=== PATIENT | female | born 1935 | race Caucasian/White ===

== ENCOUNTER → 2018-08-21 | Outpatient (CLI) | payer MEDICARE, OTHER ==
[2018-08-21 11:54] LABS: ABSOLUTE BASOPHILS # (AUTO) 0.1 10^3/uL (0.0-0.2); ABSOLUTE EOSINOPHILS # (AUTO) 0.2 10^3/uL (0.0-0.6); ABSOLUTE LYMPHOCYTES (AUTO) 3.3 10^3/uL (0.5-4.7); ABSOLUTE MONOCYTES (AUTO) 0.6 10^3/uL (0.1-1.4); ABSOLUTE NEUT (AUTO) 3.6 10^3/uL (1.7-8.2); BASOPHILS % (AUTO) 0.8 % (0-2); EOSINOPHILS % (AUTO) 2.3 % (0-6); HEMATOCRIT 35.8 % (36.0-47.0); HEMOGLOBIN 11.2 g/dL (12.0-15.5); LYMPHOCYTES % (AUTO) 42.5 % (13-45); MEAN CORPUSCULAR HEMOGLOBIN 22.7 pg (27.0-33.4); MEAN CORPUSCULAR HGB CONC 31.3 g/dL (32.0-36.0); MEAN CORPUSCULAR VOLUME 73 fl (80-97); MONOCYTES % (AUTO) 8.3 % (3-13); PLATELET COUNT 260 10^3/uL (150-450); PROTHROMBIN TIME 15.9 SEC (11.4-15.4); RED BLOOD COUNT 4.93 10^6/uL (3.72-5.28); RED CELL DISTRIBUTION WIDTH 28.2 % (11.5-14.0); SEGMENTED NEUTROPHILS % (AUTO) 46.1 % (42-78); TOTAL CELLS COUNTED % (AUTO) 100 %; WHITE BLOOD COUNT 7.8 10^3/uL (4.0-10.5)
[2018-08-21 12:05] LABS: ANION GAP 10 (5-19); BLOOD UREA NITROGEN 14 mg/dL (7-20); CALCIUM 9.5 mg/dL (8.4-10.2); CARBON DIOXIDE 30 mmol/L (22-30); CHLORIDE 102 mmol/L (98-107); GLUCOSE 164 mg/dL (75-110); POTASSIUM 4.6 mmol/L (3.6-5.0); SODIUM 142.3 mmol/L (137-145)
[2018-08-21 12:21] LABS: HYPOCHROMASIA 1+
--- NOTE | 2018-08-21 12:21 | RADIOLOGY REPORT (SQ) ---
EXAM DESCRIPTION: CHEST 2 VIEWS COMPLETED DATE/TIME: 08/21/2018 11:57 am REASON FOR STUDY: CHF AND AFIB COMPARISON: None. NUMBER OF VIEWS: Two view. TECHNIQUE: Frontal and lateral radiographic views of the chest acquired. LIMITATIONS: None. FINDINGS: LUNGS AND PLEURA: Hyperinflation No opacities, masses or pneumothorax. No pleural effusion . MEDIASTINUM AND HILAR STRUCTURES: No masses. No contour abnormalities. HEART AND VASCULAR STRUCTURES: Cardiomegaly with borderline vascular prominence. BONES: No acute findings. HARDWARE: Sternotomy wires and prosthetic valve. OTHER: No other significant finding. IMPRESSION: COPD. CARDIOMEGALY WITH BORDERLINE VASCULAR PROMINENCE. TECHNICAL DOCUMENTATION: JOB ID: [id number] [email or web address]- All Rights Reserved Reading location - IP/workstation name: [email or web address]
[2018-08-21 12:22] LABS: ANISOCYTOSIS 4+; OVALOCYTES 1+; PLATELET COMMENT ADEQUATE; POIKILOCYTOSIS 2+; TARGET CELLS 1+; TEAR DROP CELLS SLIGHT
== END ==
LOC: LAB 11:24
PROVIDERS: ATTEND Nurse Practitioner Family
DX: I50.9 Heart failure, unspecified (principal); I48.91 Unspecified atrial fibrillation; J44.9 Chronic obstructive pulmonary disease, unspecified
CPT/HCPCS: 36415; 71046; 80048; 85025; 85610

== ENCOUNTER 2019-03-19 01:25 | Emergency (ER) | payer OTHER ==
[2019-03-19] MEDS ORDERED: DIGOXIN 0.125 MG TABLET PO ONE (02:19)
--- NOTE | 2019-03-19 02:33 | ER Document Report ---
ED General - General Chief Complaint: General Weakness Stated Complaint: WEAKNESS Time Seen by Provider: 03/19/19 02:16 Notes: Patient is an 83-year-old female with a past medical history of atrial fibrillation, hypertension, hyperlipidemia, presents with palpitations and an episode of lightheadedness earlier today. The patient herself at the time of my evaluation his main complaint is that she was having palpitations that was making it difficult for her to sleep. States that she could feel her heart "beating all over the place" and that this made her extremely anxious prompting her to contact 911. Nothing seemed to improve or worsen her symptoms. Did regard them as being severe and constant when present. Somewhat improved since arrival in the emergency department. Apparently earlier today at least 8 hours prior to arrival the patient was seen in the kitchen and said that she had an episode in which her vision became somewhat dark and she felt lightheaded but this episode did resolve spontaneously and she did not pass out. She adamantly denies having any chest pain, shortness of breath, focal weakness or numbness. At baseline she is somewhat unsteady on her feet and uses a walker at all times. She is here with her daughter who corroborates history. Long-standing history of the same, states when she lived in [place] she was hospitalized frequently for irregular A. fib but eventually was told "you have to get used to this". She has follow-up with Dr. Hewitt for management of her A. fib. TRAVEL OUTSIDE OF THE [place] IN LAST 30 DAYS: No - Related Data Allergies/Adverse Reactions: No Known Allergies Allergy (Verified 03/19/19 01:27) Past Medical History - General Information source: Patient - Social History Smoking Status: Never Smoker Chew tobacco use (# tins/day): No Frequency of alcohol use: None Drug Abuse: None Lives with: Family Family History: Reviewed & Not Pertinent Patient has suicidal ideation: No Patient has homicidal ideation: No - Past Medical History Cardiac Medical History: Reports: Hx Congestive Heart Failure, Hx Hypertension Renal/ Medical History: Denies: Hx Peritoneal Dialysis Past Surgical History: Reports: Hx Cardiac Surgery Review of Systems - Review of Systems Notes: Constitutional: Negative for fever. HENT: Negative for sore throat. Eyes: Negative for visual changes. Cardiovascular: Positive palpitations Respiratory: Negative for shortness of breath. Gastrointestinal: Negative for abdominal pain, vomiting or diarrhea. Genitourinary: Negative for dysuria. Musculoskeletal: Negative for back pain. Skin: Negative for rash. Neurological: Negative for headaches, weakness or numbness. 10 point ROS negative except as marked above and in HPI. Physical Exam - Vital signs Vitals: Temp Pulse Resp BP Pulse Ox 97.7 F 62 20 156/105 H 97 03/19/19 01:37 03/19/19 01:37 03/19/19 01:37 03/19/19 01:37 03/19/19 01:37 Interpretation: Hypertensive Notes: PHYSICAL EXAMINATION: GENERAL: Well-appearing, well-nourished and in no acute distress. HEAD: Atraumatic, normocephalic. EYES: Pupils equal round and reactive to light, extraocular movements intact, sclera anicteric, conjunctiva are normal. ENT: nares patent, oropharynx clear without exudates. Moist mucous membranes. NECK: Normal range of motion, supple without lymphadenopathy LUNGS: Breath sounds clear to auscultation bilaterally and equal. No wheezes rales or rhonchi. HEART: Irregular regular rate and rhythm without murmurs ABDOMEN: Soft, nontender, normoactive bowel sounds. No guarding, no rebound. No masses appreciated. EXTREMITIES: Normal range of motion, no pitting or edema. No cyanosis. NEUROLOGICAL: No focal neurological deficits. Moves all extremities spontaneously and on command. PSYCH: Normal mood, normal affect. SKIN: Warm, Dry, normal turgor, no rashes or lesions noted. Course - Re-evaluation Re-evalutation: 03/19/19 02:31 Patient presents with complaints of general weakness, lightheadedness, but her main concern is palpitations that are making it difficult for her to sleep. Patient and daughter at the bedside do report that this is a very long-standing history and that nothing is necessarily new or different today other than the patient was having significant difficulty sleeping. Her heart rate is noted to be highly irregular, ranging anywhere from the 70s all the way up to the 140s although overall is staying within acceptable ranges below 100. Patient is noted to be markedly hypertensive although admits to not taking all of her blood pressure medications today. She does follow with Dr. Hewitt. Adamantly denies chest pain or shortness of breath. Denies any additional complaint at the time of my evaluation. No focal neurologic deficit on exam. EKG without ischemic changes. Labs are pending. 03/19/19 03:33 Patient's heart rate has remained within acceptable ranges. Labs unremarkable. Case has been discussed with Dr. Cook who is advised adding metoprolol 25 mg twice daily patient has been given her first dose here. Patient otherwise asymptomatic, states she overall feels improved. Comfortable with plan. At this time will discharge with return precautions and follow-up recommendations. Verbal discharge instructions given a the bedside and opportunity for questions given. Medication warnings reviewed. Patient is in agreement with this plan and has verbalized understanding of return precautions and the need for primary care follow-up in the next 24-72 hours. - Vital Signs Vital signs: Temp Pulse Resp BP Pulse Ox 97.7 F 62 20 172/90 H 95 03/19/19 01:37 03/19/19 01:37 03/19/19 03:01 03/19/19 03:01 03/19/19 03:01 - Laboratory Result Diagrams: 03/19/19 02:25 03/19/19 02:25 Laboratory results interpreted by me: 03/19/19 03/19/19 03/19/19 02:25 02:25 02:25 WBC 12.2 H MCHC 31.7 L Glucose 228 H Digoxin 0.79 L - EKG Interpretation by Me Additional EKG results interpreted by me: 03/19/19 02:32 Atrial fibrillation, widely varying rates. Average rate 121. Incomplete right bundle branch block. No ST elevations or depressions. Discharge - Discharge Clinical Impression: Palpitations, Lightheadedness Atrial fibrillation Qualifiers: Atrial fibrillation type: chronic Qualified Code(s): I48.2 - Chronic atrial fibrillation Condition: Good Disposition: HOME, SELF-CARE Additional Instructions: Your labs are reassuring today. I have discussed her case with Dr. Hewitt and he has asked that we add metoprolol 25 mg twice daily. Please do not stop any of your other medications. He has asked that you see him in the office Thursday. Please call his office first thing Thursday. Please return to the emergency department immediately if you pass out, develop chest pain, have ongoing palpitations, have persistent vomiting, develop focal weakness, numbness or confusion, or any other symptoms that are worrisome to you. Prescriptions: Metoprolol Tartrate [Lopressor 25 mg Tablet] 25 mg PO Q12 #60 tab
[2019-03-19 02:47] LABS: ABSOLUTE EOSINOPHILS # (AUTO) 0.1 10^3/uL (0.0-0.6); ABSOLUTE MONOCYTES (AUTO) 0.9 10^3/uL (0.1-1.4); ABSOLUTE NEUT (AUTO) 7.2 10^3/uL (1.7-8.2); BASOPHILS % (AUTO) 0.4 % (0-2); EOSINOPHILS % (AUTO) 0.7 % (0-6); HEMATOCRIT 40.8 % (36.0-47.0); HEMOGLOBIN 12.9 g/dL (12.0-15.5); LYMPHOCYTES % (AUTO) 32.8 % (13-45); MEAN CORPUSCULAR HGB CONC 31.7 g/dL (32.0-36.0); MEAN CORPUSCULAR VOLUME 85 fl (80-97); MONOCYTES % (AUTO) 7.2 % (3-13); PLATELET COUNT 287 10^3/uL (150-450); RED BLOOD COUNT 4.79 10^6/uL (3.72-5.28); RED CELL DISTRIBUTION WIDTH 13.4 % (11.5-14.0); SEGMENTED NEUTROPHILS % (AUTO) 58.9 % (42-78); TOTAL CELLS COUNTED % (AUTO) 100 %; WHITE BLOOD COUNT 12.2 10^3/uL (4.0-10.5)
[2019-03-19 03:03] LABS: ANION GAP 11 (5-19); BLOOD UREA NITROGEN 18 mg/dL (7-20); CALCIUM 9.5 mg/dL (8.4-10.2); CARBON DIOXIDE 30 mmol/L (22-30); CHLORIDE 103 mmol/L (98-107); GLUCOSE 228 mg/dL (75-110); POTASSIUM 4.2 mmol/L (3.6-5.0)
[2019-03-19] MEDS ORDERED: METOPROLOL TARTRATE 25 MG TABLET PO ONE (03:23)
[2019-03-19 03:52] LABS: DIGOXIN 0.79 ng/mL (0.8-2.0)
[2019-03-19 04:12] VITALS: BP 169/97
--- NOTE | 2019-03-19 23:43 | EKG REPORT ---
SEVERITY:- ABNORMAL ECG - ATRIAL FIBRILLATION INCOMPLETE RIGHT BUNDLE BRANCH BLOCK : Confirmed by: Valentina Hewitt MD 19-Mar-2019 23:42:57
== END 2019-03-19 04:01 | disposition home or self-care (01) ==
LOC: ER 01:25
DX: I48.2 Chronic atrial fibrillation (principal); R53.1 Weakness; R00.2 Palpitations; R42 Dizziness and giddiness; E78.5 Hyperlipidemia, unspecified; I50.9 Heart failure, unspecified; I11.0 Hypertensive heart disease with heart failure
CPT/HCPCS: 93005; 99285; 36415; 80162; 85025; 80048; 84484; 93010; A9270

== ENCOUNTER → 2019-06-14 | Outpatient (CLI) | payer OTHER ==
[2019-06-14 12:54] LABS: ABSOLUTE BASOPHILS # (AUTO) 0.1 10^3/uL (0.0-0.2); ABSOLUTE LYMPHOCYTES (AUTO) 5.5 10^3/uL (0.5-4.7); ABSOLUTE MONOCYTES (AUTO) 0.9 10^3/uL (0.1-1.4); ABSOLUTE NEUT (AUTO) 7.6 10^3/uL (1.7-8.2); BASOPHILS % (AUTO) 0.4 % (0-2); EOSINOPHILS % (AUTO) 0.3 % (0-6); HEMATOCRIT 42.6 % (36.0-47.0); HEMOGLOBIN 13.2 g/dL (12.0-15.5); LYMPHOCYTES % (AUTO) 38.9 % (13-45); MEAN CORPUSCULAR HEMOGLOBIN 23.5 pg (27.0-33.4); MEAN CORPUSCULAR HGB CONC 30.9 g/dL (32.0-36.0); MEAN CORPUSCULAR VOLUME 76 fl (80-97); MONOCYTES % (AUTO) 6.6 % (3-13); PLATELET COUNT 311 10^3/uL (150-450); SEGMENTED NEUTROPHILS % (AUTO) 53.8 % (42-78); TOTAL CELLS COUNTED % (AUTO) 100 %; WHITE BLOOD COUNT 14.1 10^3/uL (4.0-10.5)
[2019-06-14 13:22] LABS: ANION GAP 11 (5-19); BLOOD UREA NITROGEN 17 mg/dL (7-20); CALCIUM 9.8 mg/dL (8.4-10.2); CARBON DIOXIDE 30 mmol/L (22-30); CHLORIDE 99 mmol/L (98-107); DIGOXIN 0.89 ng/mL (0.8-2.0); GLUCOSE 206 mg/dL (75-110); POTASSIUM 4.3 mmol/L (3.6-5.0)
[2019-06-14 13:32] LABS: FREE T3 3.29 pg/mL (2.77-5.27); FREE T4 (FREE THYROXINE) 1.8 ng/dL (0.78-2.19)
[2019-06-14 13:46] LABS: THYROID STIMULATING HORMONE 1.69 uIU/mL (0.47-4.68)
== END ==
LOC: OD 12:03
PROVIDERS: ATTEND Specialist
DX: I11.0 Hypertensive heart disease with heart failure (principal); I50.22 Chronic systolic (congestive) heart failure; I25.10 Atherosclerotic heart disease of native coronary artery without angina pectoris; I42.0 Dilated cardiomyopathy; I48.2 Chronic atrial fibrillation; E78.5 Hyperlipidemia, unspecified; E03.9 Hypothyroidism, unspecified; Z95.2 Presence of prosthetic heart valve; Z79.899 Other long term (current) drug therapy
CPT/HCPCS: 36415; 80048; 80162; 83036; 84439; 84443; 84481; 85025

== ENCOUNTER 2019-06-15 20:11 | Inpatient (IN) | payer OTHER, MEDICARE ==
[2019-06-15 21:03] LABS: ABSOLUTE BASOPHILS # (AUTO) 0.1 10^3/uL (0.0-0.2); ABSOLUTE EOSINOPHILS # (AUTO) 0.1 10^3/uL (0.0-0.6); ABSOLUTE LYMPHOCYTES (AUTO) 5.8 10^3/uL (0.5-4.7); ABSOLUTE NEUT (AUTO) 10.6 10^3/uL (1.7-8.2); BASOPHILS % (AUTO) 0.6 % (0-2); EOSINOPHILS % (AUTO) 0.5 % (0-6); HEMATOCRIT 40.8 % (36.0-47.0); HEMOGLOBIN 12.5 g/dL (12.0-15.5); LYMPHOCYTES % (AUTO) 33.2 % (13-45); MEAN CORPUSCULAR HEMOGLOBIN 23.2 pg (27.0-33.4); MEAN CORPUSCULAR HGB CONC 30.7 g/dL (32.0-36.0); MEAN CORPUSCULAR VOLUME 76 fl (80-97); MONOCYTES % (AUTO) 5.5 % (3-13); PLATELET COUNT 314 10^3/uL (150-450); RED CELL DISTRIBUTION WIDTH 15.9 % (11.5-14.0); SEGMENTED NEUTROPHILS % (AUTO) 60.2 % (42-78); TOTAL CELLS COUNTED % (AUTO) 100 %; WHITE BLOOD COUNT 17.6 10^3/uL (4.0-10.5)
[2019-06-15 21:21] LABS: ALKALINE PHOSPHATASE 89 U/L (38-126); ANION GAP 7 (5-19); ASPARTATE AMINO TRANSFERASE 29 U/L (14-36); BILIRUBIN,DIRECT 0.6 mg/dL (0.0-0.4); BILIRUBIN,TOTAL 1.3 mg/dL (0.2-1.3); BLOOD UREA NITROGEN 20 mg/dL (7-20); CALCIUM 9.1 mg/dL (8.4-10.2); CARBON DIOXIDE 30 mmol/L (22-30); CHLORIDE 100 mmol/L (98-107); CREATINE KINASE 43 U/L (30-135); GLUCOSE 223 mg/dL (75-110); POTASSIUM 3.9 mmol/L (3.6-5.0); TOTAL PROTEIN 7.1 g/dL (6.3-8.2)
[2019-06-15 21:33] LABS: CREATINE KINASE MB 1.26 ng/mL (<4.55)
[2019-06-15 21:38] LABS: TROPONIN I < 0.012 ng/mL
[2019-06-15 22:08] LABS: INTERNATIONAL RATION (INR) 1.42; PROTHROMBIN TIME 17.5 SEC (11.4-15.4)
[2019-06-15 22:09] LABS: PARTIAL THROMBOPLASTIN TIME 30.2 SEC (23.5-35.8)
--- NOTE | 2019-06-15 22:17 | RADIOLOGY REPORT (SQ) ---
XR CHEST 2 VIEWS EXAM DATE: 06/15/2019 9:20 PM CDT HISTORY: SOB. COMPARISON: None. FINDINGS: Mild hepatomegaly with prior valve replacement. There are small bilateral pleural effusions with adjacent atelectasis. No pneumothorax. The bony thorax is intact. IMPRESSION: Small pleural effusions with adjacent atelectasis.
[2019-06-15 22:24] LABS: APPEARANCE,URINE SLIGHTLY-CLOUDY; BILIRUBIN,URINE NEGATIVE (NEGATIVE); COLOR,URINE AMBER; GLUCOSE, URINE >=500 mg/dL (NEGATIVE); KETONES,URINE TRACE mg/dL (NEGATIVE); LEUKOCYTE ESTERASE,URINE NEGATIVE (NEGATIVE); NITRITE,URINE NEGATIVE (NEGATIVE); PROTEIN,URINE 100 mg/dL (NEGATIVE); URINE SPECIFIC GRAVITY 1.023
[2019-06-15] MEDS ORDERED: FUROSEMIDE INJ/PF 40 MG/4 ML SDV IV ONE (23:33)
[2019-06-16] MEDS ORDERED: MAG HYDROX/AL HYDROX/SIMETH SUSP 30 ML UDCUP PO PRN (00:20)
[2019-06-16] MEDS ORDERED: ACETAMINOPHEN 325 MG TABLET PO PRN (00:20)
--- NOTE | 2019-06-16 00:21 | ER Document Report ---
ED Respiratory Problem - General Chief Complaint: Shortness Of Breath Stated Complaint: WEAKNESS Time Seen by Provider: 06/15/19 21:19 Notes: Patient is a 83-year-old female presents to the emergency department for generalized respiratory distress. Patient states this evening while sitting on the couch she felt as though she could not catch her breath. States her daughter was in the room. Daughter states patient's face turned red and it seems like patient was gasping for air. Daughter is denying any coughing or choking episodes. Patient also denying any loss of consciousness. States she was able to inevitably catch her breath then presents to the emergency department. Patient states she has generalized congestion but is denying any cough. Patient's denying any fevers. Patient states at this point time she feels as though it is hard to take a deep breath. Patient's denying any chest pain. Patient recently moved to the area approximately 5 months ago. Does not have a primary care provider but has seen Dr. Cook as her physical therapy nurse. States yesterday she saw Dr. Back and he started her on Lasix 20 mg daily. States this was due to swelling in bilateral lower extremities and the patient has recently noted. Patient does have a history of congestive heart failure, atrial fibrillation, hypertension Patient has a surgical history of aortic valve replacement. TRAVEL OUTSIDE OF THE [place] IN LAST 30 DAYS: No - Related Data Allergies/Adverse Reactions: No Known Allergies Allergy (Verified 03/19/19 01:27) Past Medical History - General Information source: Patient, Relative - Social History Smoking Status: Never Smoker Chew tobacco use (# tins/day): No Frequency of alcohol use: None Drug Abuse: None Family History: Reviewed & Not Pertinent Patient has suicidal ideation: No Patient has homicidal ideation: No - Past Medical History Cardiac Medical History: Reports: Hx Congestive Heart Failure, Hx Hypertension Renal/ Medical History: Denies: Hx Peritoneal Dialysis Past Surgical History: Reports: Hx Cardiac Surgery Review of Systems - Review of Systems Constitutional: denies: Fever EENT: See HPI Cardiovascular: See HPI Respiratory: See HPI Gastrointestinal: No symptoms reported Genitourinary: No symptoms reported Female Genitourinary: No symptoms reported Musculoskeletal: No symptoms reported Skin: No symptoms reported Hematologic/Lymphatic: No symptoms reported Neurological/Psychological: No symptoms reported Physical Exam - Vital signs Vitals: Resp 14 06/15/19 20:18 - Notes Notes: GENERAL: Alert, interacts well. No acute distress. HEAD: Normocephalic, atraumatic. EYES: Pupils equal, round, and reactive to light. Extraocular movements intact. ENT: Oral mucosa moist, tongue midline. NECK: Full range of motion. Supple. Trachea midline. LUNGS: Clear to auscultation bilateral apices, no discernible wheezes, rales, or rhonchi. Diminished bilateral bases although, no respiratory distress lungs sitting still in bed. HEART: Irregularly irregular rate and rhythm. No murmur ABDOMEN: Soft, non-tender. Non-distended. Bowel sounds present in all 4 quadrants. EXTREMITIES: Moves all 4 extremities spontaneously. normal radial and dorsalis pedis pulses bilaterally. No cyanosis. +1 pitting edema noted bilateral lower extremities. BACK: no cervical, thoracic, lumbar midline tenderness. No saddle anesthesia, normal distal neurovascular exam. NEUROLOGICAL: Alert and oriented x3. Normal speech. cranial nerves II through XII grossly intact PSYCH: Normal affect, normal mood. SKIN: Warm, dry, normal turgor. No rashes or lesions noted. Course - Re-evaluation Re-evalutation: Laboratory 06/15/19 06/15/19 06/15/19 20:49 20:49 20:49 WBC 17.6 H RBC 5.40 H Hgb 12.5 Hct 40.8 MCV 76 L MCH 23.2 L MCHC 30.7 L RDW 15.9 H Plt Count 314 Lymph % (Auto) 33.2 Wright % (Auto) 5.5 Eos % (Auto) 0.5 Baso % (Auto) 0.6 Absolute Neuts (auto) 10.6 H Absolute Lymphs (auto) 5.8 H Absolute Monos (auto) 1.0 Absolute Eos (auto) 0.1 Absolute Basos (auto) 0.1 Seg Neutrophils % 60.2 PT INR APTT Sodium 137.4 Potassium 3.9 Chloride 100 Carbon Dioxide 30 Anion Gap 7 BUN 20 Creatinine 0.48 L Est GFR ( Amer) > 60 Est GFR (MDRD) Non-Af > 60 Glucose 223 H Calcium 9.1 Magnesium Total Bilirubin 1.3 Direct Bilirubin 0.6 H Neonat Total Bilirubin Not Reportable Neonat Direct Bilirubin Not Reportable Neonat Indirect Bili Not Reportable AST 29 ALT 14 Alkaline Phosphatase 89 Creatine Kinase 43 CK-MB (CK-2) 1.26 Troponin I < 0.012 NT-Pro-B Natriuret Pep Total Protein 7.1 Albumin 4.0 TSH Urine Color Urine Appearance Urine pH Ur Specific [place] Urine Protein Urine Glucose (UA) Urine Ketones Urine Blood Urine Nitrite Urine Bilirubin Urine Urobilinogen Ur Leukocyte Esterase Urine WBC (Auto) Urine RBC (Auto) U Hyaline Cast (Auto) Squamous Epi Cells Auto Urine Mucus (Auto) Urine Ascorbic Acid Digoxin 06/15/19 06/15/19 06/15/19 20:49 20:49 20:49 WBC RBC Hgb Hct MCV MCH MCHC RDW Plt Count Lymph % (Auto) Wright % (Auto) Eos % (Auto) Baso % (Auto) Absolute Neuts (auto) Absolute Lymphs (auto) Absolute Monos (auto) Absolute Eos (auto) Absolute Basos (auto) Seg Neutrophils % PT 17.5 H INR 1.42 APTT 30.2 Sodium Potassium Chloride Carbon Dioxide Anion Gap BUN Creatinine Est GFR ( Amer) Est GFR (MDRD) Non-Af Glucose Calcium Magnesium Total Bilirubin Direct Bilirubin Neonat Total Bilirubin Neonat Direct Bilirubin Neonat Indirect Bili AST ALT Alkaline Phosphatase Creatine Kinase CK-MB (CK-2) Troponin I NT-Pro-B Natriuret Pep 70397 H Total Protein Albumin TSH Urine Color Urine Appearance Urine pH Ur Specific [place] Urine Protein Urine Glucose (UA) Urine Ketones Urine Blood Urine Nitrite Urine Bilirubin Urine Urobilinogen Ur Leukocyte Esterase Urine WBC (Auto) Urine RBC (Auto) U Hyaline Cast (Auto) Squamous Epi Cells Auto Urine Mucus (Auto) Urine Ascorbic Acid Digoxin 0.83 06/15/19 06/15/19 06/15/19 20:49 20:49 22:09 WBC RBC Hgb Hct MCV MCH MCHC RDW Plt Count Lymph % (Auto) Wright % (Auto) Eos % (Auto) Baso % (Auto) Absolute Neuts (auto) Absolute Lymphs (auto) Absolute Monos (auto) Absolute Eos (auto) Absolute Basos (auto) Seg Neutrophils % PT INR APTT Sodium Potassium Chloride Carbon Dioxide Anion Gap BUN Creatinine Est GFR ( Amer) Est GFR (MDRD) Non-Af Glucose Calcium Magnesium 1.8 Total Bilirubin Direct Bilirubin Neonat Total Bilirubin Neonat Direct Bilirubin Neonat Indirect Bili AST ALT Alkaline Phosphatase Creatine Kinase CK-MB (CK-2) Troponin I NT-Pro-B Natriuret Pep Total Protein Albumin TSH 2.10 Urine Color KING Urine Appearance SLIGHTLY-CLOUDY Urine pH 6.0 Ur Specific [place] 1.023 Urine Protein 100 H Urine Glucose (UA) >=500 H Urine Ketones TRACE H Urine Blood SMALL H Urine Nitrite NEGATIVE Urine Bilirubin NEGATIVE Urine Urobilinogen 4.0 H Ur Leukocyte Esterase NEGATIVE Urine WBC (Auto) 4 Urine RBC (Auto) 3 U Hyaline Cast (Auto) 4 Squamous Epi Cells Auto 7 Urine Mucus (Auto) OCC Urine Ascorbic Acid NEGATIVE Digoxin Chest X-Ray 06/15/19 21:20 IMPRESSION: Small pleural effusions with adjacent atelectasis. EKG shows A-fib RBBB QTC 448, ST depression III, V3, [place] [id number] with bilateral pleural effusions on x-ray, patie nt's oxygen saturation around 93% on room air and slight tachypnea noted when patient sits up in the room to evaluate lung sounds I have discussed this case with hospitalist Dr. Levine for admission. Patient was placed on oxygen 2 L/min. IV Lasix has been ordered and administered. Dr. Levine will accept this patient for continued management to [facility]. - Vital Signs Vital signs: Temp Pulse Resp BP Pulse Ox 97.2 F 90 20 134/95 H 100 06/16/19 02:17 06/16/19 02:17 06/16/19 02:17 06/16/19 02:17 06/16/19 02:17 - Laboratory Result Diagrams: 06/16/19 02:59 06/15/19 20:49 Laboratory results interpreted by me: 06/15/19 06/15/19 06/15/19 20:49 20:49 20:49 WBC 17.6 H RBC 5.40 H MCV 76 L MCH 23.2 L MCHC 30.7 L RDW 15.9 H Absolute Neuts (auto) 10.6 H Absolute Lymphs (auto) 5.8 H PT Creatinine 0.48 L Glucose 223 H Direct Bilirubin 0.6 H NT-Pro-B Natriuret Pep 14244 H Urine Protein Urine Glucose (UA) Urine Ketones Urine Blood Urine Urobilinogen 06/15/19 06/15/19 20:49 22:09 WBC RBC MCV MCH MCHC RDW Absolute Neuts (auto) Absolute Lymphs (auto) PT 17.5 H Creatinine Glucose Direct Bilirubin NT-Pro-B Natriuret Pep Urine Protein 100 H Urine Glucose (UA) >=500 H Urine Ketones TRACE H Urine Blood SMALL H Urine Urobilinogen 4.0 H Discharge - Discharge Clinical Impression: Pleural effusion due to CHF (congestive heart failure), Respiratory distress Condition: Stable Disposition: ADMITTED INPATIENT Admitting Provider: Abner (Hospitalist) Unit Admitted: [facility]
[2019-06-16] MEDS ORDERED: HYDRALAZINE HCL INJ/PF 20 MG/1 ML SDV IV PRN (00:46)
[2019-06-16] MEDS ORDERED: POTASSIUM CHLORIDE 10 MEQ CAPSULE.ER PO ONE (01:00)
[2019-06-16 03:10] LABS: ABSOLUTE BASOPHILS # (AUTO) 0.1 10^3/uL (0.0-0.2); ABSOLUTE LYMPHOCYTES (AUTO) 6.4 10^3/uL (0.5-4.7); ABSOLUTE MONOCYTES (AUTO) 1.1 10^3/uL (0.1-1.4); ABSOLUTE NEUT (AUTO) 9.1 10^3/uL (1.7-8.2); BASOPHILS % (AUTO) 0.4 % (0-2); EOSINOPHILS % (AUTO) 0.3 % (0-6); HEMATOCRIT 40.5 % (36.0-47.0); HEMOGLOBIN 12.5 g/dL (12.0-15.5); LYMPHOCYTES % (AUTO) 38.3 % (13-45); MEAN CORPUSCULAR HEMOGLOBIN 23.2 pg (27.0-33.4); MEAN CORPUSCULAR HGB CONC 30.9 g/dL (32.0-36.0); MEAN CORPUSCULAR VOLUME 75 fl (80-97); MONOCYTES % (AUTO) 6.5 % (3-13); PLATELET COUNT 306 10^3/uL (150-450); RED CELL DISTRIBUTION WIDTH 15.7 % (11.5-14.0); SEGMENTED NEUTROPHILS % (AUTO) 54.5 % (42-78); TOTAL CELLS COUNTED % (AUTO) 100 %; WHITE BLOOD COUNT 16.7 10^3/uL (4.0-10.5)
[2019-06-16 03:30] LABS: ANION GAP 11 (5-19); BLOOD UREA NITROGEN 18 mg/dL (7-20); CALCIUM 9.5 mg/dL (8.4-10.2); CARBON DIOXIDE 31 mmol/L (22-30); CHLORIDE 98 mmol/L (98-107); CHOLESTEROL 156.06 mg/dL (0-200); CREATINE KINASE 40 U/L (30-135); GLUCOSE 206 mg/dL (75-110); POTASSIUM 3.9 mmol/L (3.6-5.0); TRIGLYCERIDES 78 mg/dL (<150)
[2019-06-16 03:39] LABS: CREATINE KINASE MB 0.91 ng/mL (<4.55); TROPONIN I 0.015 ng/mL
[2019-06-16 03:41] LABS: DIRECT LDL 136 mg/dL (<100)
--- NOTE | 2019-06-16 04:51 | PDOC H&P ---
History of Present Illness Admission Date/PCP: 06/16/19 00:26 EDI BECKWITH MD Patient complains of: Shortness of breath History of Present Illness: RUBEN MORRIS is a 83 year old female with a past medical history of atrial fibrillation, mechanical aortic valve replacement and congestive heart failure. Patient presents with 3 days of increasing shortness of breath developing wheeze prompting evaluation by primary vendor management specialist Dr. Beckwith. She was started Lasix but admitted intolerable thirst prompting her to drink more. She developed lower extremity edema, orthopnea, palpitations and tachycardia prompting emergency department evaluation. In the emergency room she is found to have acute exacerbation of congestive heart failure, A. fib with controlled rate, BNP of greater than 100,000 and small bilateral pleural effusions with pulmonary vascular congestion. She denies chest pain, nausea or vomiting. She is started on IV Lasix and referred to the hospitalist for admission. She is unaware of dietary restrictions but is otherwise compliant with medications. Past Medical History Cardiac Medical History: Reports: Congestive Heart Failure, Hypertension Psychiatric Medical History: Denies: Depression, Tobacco Dependency Social History Smoking Status: Never Smoker - Advance Directive Resuscitation Status: Full Code Family History Family History: Hypertension Parental Family History Reviewed: Yes Children Family History Reviewed: Yes Sibling(s) Family History Reviewed.: Yes Medication/Allergy Home Medications: Metoprolol Tartrate [Lopressor 25 mg Tablet] 25 mg PO Q12 #60 tab 03/19/19 Allergies/Adverse Reactions: No Known Allergies Allergy (Verified 03/19/19 01:27) Review of Systems Constitutional: PRESENT: as per HPI, weight gain Eyes: ABSENT: visual disturbances Ears: ABSENT: hearing changes Cardiovascular: PRESENT: as per HPI, dyspnea on exertion, edema, orthropnea, palpitations. ABSENT: chest pain Respiratory: ABSENT: cough, hemoptysis Gastrointestinal: ABSENT: abdominal pain, constipation, diarrhea, hematemesis, hematochezia, nausea, vomiting Genitourinary: ABSENT: dysuria, hematuria Musculoskeletal: ABSENT: joint swelling Integumentary: ABSENT: rash, wounds Neurological: ABSENT: abnormal gait, abnormal speech, confusion, dizziness, focal weakness, syncope Psychiatric: ABSENT: anxiety, depression, homidical ideation, suicidal ideation Endocrine: ABSENT: cold intolerance, heat intolerance, polydipsia, polyuria Hematologic/Lymphatic: ABSENT: easy bleeding, easy bruising Physical Exam Vital Signs: Temp Pulse Resp BP Pulse Ox 97.2 F 90 20 134/95 H 100 06/16/19 02:17 06/16/19 02:17 06/16/19 02:17 06/16/19 02:17 06/16/19 02:17 Intake & Output 06/14/19 06/15/19 06/16/19 11:59 11:59 11:59 Weight 73.64 kg General appearance: PRESENT: cooperative, mild distress, well-developed, well- nourished Head exam: PRESENT: atraumatic, normocephalic Eye exam: PRESENT: conjunctiva pink, EOMI, PERRLA. ABSENT: scleral icterus Ear exam: PRESENT: normal external ear exam Mouth exam: PRESENT: moist, tongue midline Neck exam: ABSENT: carotid bruit, JVD, lymphadenopathy, thyromegaly Respiratory exam: PRESENT: crackles, tachypnea. ABSENT: rales, retraction, rhon chi, wheezes Cardiovascular exam: PRESENT: gallop, irregular rhythm, systolic murmur, tachycardia. ABSENT: diastolic murmur, rubs Pulses: PRESENT: normal dorsalis pedis pul Vascular exam: PRESENT: normal capillary refill GI/Abdominal exam: PRESENT: normal bowel sounds, soft. ABSENT: distended, gua rding, mass, organolmegaly, rebound, tenderness Rectal exam: PRESENT: deferred Extremities exam: PRESENT: full ROM, +2 edema. ABSENT: calf tenderness, clubbing, pedal edema Neurological exam: PRESENT: alert, awake, oriented to person, oriented to place, oriented to time, oriented to situation, CN II-XII grossly intact. ABSENT: motor sensory deficit Psychiatric exam: PRESENT: appropriate affect, normal mood. ABSENT: homicidal ideation, suicidal ideation Skin exam: PRESENT: dry, intact, warm. ABSENT: cyanosis, rash Results Laboratory Results: 06/16/19 02:59 06/16/19 02:59 06/15/19 06/15/19 06/15/19 20:49 20:49 20:49 WBC 17.6 H RBC 5.40 H Hgb 12.5 Hct 40.8 MCV 76 L MCH 23.2 L MCHC 30.7 L RDW 15.9 H Plt Count 314 Seg Neutrophils % 60.2 Sodium 137.4 Potassium 3.9 Chloride 100 Carbon Dioxide 30 Anion Gap 7 BUN 20 Creatinine 0.48 L Est GFR ( Amer) > 60 Glucose 223 H Calcium 9.1 Magnesium 1.8 Total Bilirubin 1.3 AST 29 Alkaline Phosphatase 89 Total Protein 7.1 Albumin 4.0 Triglycerides Cholesterol LDL Cholesterol Direct VLDL Cholesterol HDL Cholesterol TSH Urine Color Urine Appearance Urine pH Ur Specific [place] Urine Protein Urine Glucose (UA) Urine Ketones Urine Blood Urine Nitrite Ur Leukocyte Esterase Urine WBC (Auto) Urine RBC (Auto) 06/15/19 06/15/19 06/16/19 20:49 22:09 02:59 WBC 16.7 H RBC 5.40 H Hgb 12.5 Hct 40.5 MCV 75 L MCH 23.2 L MCHC 30.9 L RDW 15.7 H Plt Count 306 Seg Neutrophils % 54.5 Sodium Potassium Chloride Carbon Dioxide Anion Gap BUN Creatinine Est GFR ( Amer) Glucose Calcium Magnesium Total Bilirubin AST Alkaline Phosphatase Total Protein Albumin Triglycerides Cholesterol LDL Cholesterol Direct VLDL Cholesterol HDL Cholesterol TSH 2.10 Urine Color KING Urine Appearance SLIGHTLY-CLOUDY Urine pH 6.0 Ur Specific [place] 1.023 Urine Protein 100 H Urine Glucose (UA) >=500 H Urine Ketones TRACE H Urine Blood SMALL H Urine Nitrite NEGATIVE Ur Leukocyte Esterase NEGATIVE Urine WBC (Auto) 4 Urine RBC (Auto) 3 06/16/19 02:59 WBC RBC Hgb Hct MCV MCH MCHC RDW Plt Count Seg Neutrophils % Sodium 140.2 Potassium 3.9 Chloride 98 Carbon Dioxide 31 H Anion Gap 11 BUN 18 Creatinine 0.50 L Est GFR ( Amer) > 60 Glucose 206 H Calcium 9.5 Magnesium Total Bilirubin AST Alkaline Phosphatase Total Protein Albumin Triglycerides 78 Cholesterol 156.06 LDL Cholesterol Direct 136 H VLDL Cholesterol 16.0 HDL Cholesterol 36 L TSH Urine Color Urine Appearance Urine pH Ur Specific [place] Urine Protein Urine Glucose (UA) Urine Ketones Urine Blood Urine Nitrite Ur Leukocyte Esterase Urine WBC (Auto) Urine RBC (Auto) 06/15/19 06/15/19 06/15/19 20:49 20:49 20:49 Creatine Kinase 43 CK-MB (CK-2) 1.26 Troponin I < 0.012 NT-Pro-B Natriuret Pep [id number] H 06/16/19 06/16/19 02:59 02:59 Creatine Kinase 40 CK-MB (CK-2) 0.91 Troponin I 0.015 NT-Pro-B Natriuret Pep Impressions: Chest X-Ray 06/15/19 21:20 IMPRESSION: Small pleural effusions with adjacent atelectasis. Assessment and Plan - Diagnosis (1) CHF exacerbation Is this a current diagnosis for this admission?: Yes Plan: CHF care set deployed, diuresis, education, follow-up 2D echo, troponin, TSH and chemistry. (2) Pleural effusion due to CHF (congestive heart failure) Is this a current diagnosis for this admission?: Yes Plan: Secondary to #1, dietary discretion. Diuresis and education (3) Respiratory distress Is this a current diagnosis for this admission?: Yes Plan: Secondary to #1, supplemental oxygen, BiPAP as needed and diuresis - Time Time Spent with patient: 25-34 minutes - Inpatient Certification Medical Necessity: Need Close Monitoring Due to Risk of Patient Decompensation
--- NOTE | 2019-06-16 07:31 | EKG REPORT ---
SEVERITY:- ABNORMAL ECG - ATRIAL FIBRILLATION VENTRICULAR TRIGEMINY RIGHT BUNDLE BRANCH BLOCK LATERAL INFARCT, OLD PROBABLE ANTEROSEPTAL INFARCT, AGE INDETERM ST DEPRESSION, CONSIDER ISCHEMIA, INF LEADS : Confirmed by: Gabriel Jacobo MD 16-Jun-2019 07:30:24
[2019-06-16] MEDS ORDERED: (PENDING PHARMACY ID) (Bisoprolol Fumarate [Zebeta 5 Mg Tablet] 5 MG) PO SCH (10:00)
[2019-06-16] MEDS ORDERED: (PENDING PHARMACY ID) (Esomeprazole Magnesium [Nexium 24hr] 20 MG) PO SCH (10:00)
[2019-06-16] MEDS ORDERED: ASPIRIN 81 MG TABLET, ENT COATED PO SCH (10:00)
[2019-06-16] MEDS ORDERED: LOSARTAN POTASSIUM 25 MG TABLET PO SCH (10:00)
[2019-06-16] MEDS ORDERED: FUROSEMIDE 20 MG TABLET PO SCH (10:00)
[2019-06-16] MEDS ORDERED: METOPROLOL TARTRATE 25 MG TABLET PO SCH (10:00)
[2019-06-16] MEDS ORDERED: ATENOLOL 50 MG TABLET PO SCH (10:00)
[2019-06-16] MEDS ORDERED: SACUBITRIL/VALSARTAN 49 MG/51 MG TABLET PO SCH (10:00)
[2019-06-16] MEDS: NITROGLYCERIN 5 MG (0.2 MG/HR) PATCH.TD24 TD SCH (10:09)
[2019-06-16] MEDS: FUROSEMIDE INJ/PF 40 MG/4 ML SDV IV SCH (10:09)
[2019-06-16] MEDS: DOCUSATE SODIUM 100 MG CAPSULE PO SCH (10:13)
[2019-06-16] MEDS: FERROUS SULFATE 325 MG TABLET PO SCH (10:13)
[2019-06-16] MEDS: POTASSIUM CHLORIDE 10 MEQ CAPSULE.ER PO SCH ×2 (10:14→21:06)
[2019-06-16] MEDS: ASPIRIN 81 MG TABLET, ENT COATED PO SCH (10:15)
[2019-06-16] MEDS: SPIRONOLACTONE 25 MG TABLET PO SCH (10:16)
[2019-06-16] MEDS: APIXABAN 5 MG TABLET PO SCH ×2 (10:16→17:13)
[2019-06-16] MEDS: DIGOXIN 0.125 MG TABLET PO SCH (10:16)
[2019-06-16] MEDS: PANTOPRAZOLE SODIUM 20 MG TABLET.DR PO SCH (10:16)
[2019-06-16 11:34] LABS: CREATINE KINASE MB 1.2 ng/mL (<4.55); TROPONIN I 0.014 ng/mL
--- NOTE | 2019-06-16 13:48 | PDOC PROGRESS REPORT ---
Subjective Progress Note for:: 06/16/19 Subjective:: This is 83 years old female patient with past medical history of mechanical aortic valve replacement, hypothyroidism, systolic congestive heart failure, hypertension, hypothyroidism and type 2 diabetes mellitus not on any medication presented with chief complaint of shortness of breath. Patient reports that her current situation is precipitated by excess water drinking due to intense thirst. Her BNP is 11,700. I seen patient propped up in bed. She is awake alert oriented. Reports this her shortness of breath is relatively improved. Her medication reviewed and reconciled. Reason For Visit: AFIB, HEART FAILURE Physical Exam Vital Signs: Temp Pulse Resp BP Pulse Ox 97.8 F 84 20 154/96 H 96 06/16/19 08:01 06/16/19 08:01 06/16/19 08:01 06/16/19 08:01 06/16/19 09:41 Intake & Output 06/15/19 06/16/19 06/17/19 06:59 06:59 06:59 Intake Total 0 Balance 0 Weight 75 kg General appearance: PRESENT: mild distress Head exam: PRESENT: atraumatic Eye exam: PRESENT: conjunctiva pink Neck exam: PRESENT: JVD Respiratory exam: PRESENT: decreased breath sounds Cardiovascular exam: PRESENT: irregular rhythm GI/Abdominal exam: PRESENT: normal bowel sounds, soft. ABSENT: distended, guarding, mass, organolmegaly, rebound, tenderness Neurological exam: PRESENT: alert, oriented to person, oriented to place, oriented to time, oriented to situation Results Laboratory Results: 06/16/19 02:59 06/16/19 02:59 06/15/19 06/15/19 06/15/19 20:49 20:49 20:49 WBC 17.6 H RBC 5.40 H Hgb 12.5 Hct 40.8 MCV 76 L MCH 23.2 L MCHC 30.7 L RDW 15.9 H Plt Count 314 Seg Neutrophils % 60.2 Sodium 137.4 Potassium 3.9 Chloride 100 Carbon Dioxide 30 Anion Gap 7 BUN 20 Creatinine 0.48 L Est GFR ( Amer) > 60 Glucose 223 H Calcium 9.1 Magnesium 1.8 Total Bilirubin 1.3 AST 29 Alkaline Phosphatase 89 Total Protein 7.1 Albumin 4.0 Triglycerides Cholesterol LDL Cholesterol Direct VLDL Cholesterol HDL Cholesterol TSH Urine Color Urine Appearance Urine pH Ur Specific [place] Urine Protein Urine Glucose (UA) Urine Ketones Urine Blood Urine Nitrite Ur Leukocyte Esterase Urine WBC (Auto) Urine RBC (Auto) 06/15/19 06/15/19 06/16/19 20:49 22:09 02:59 WBC 16.7 H RBC 5.40 H Hgb 12.5 Hct 40.5 MCV 75 L MCH 23.2 L MCHC 30.9 L RDW 15.7 H Plt Count 306 Seg Neutrophils % 54.5 Sodium Potassium Chloride Carbon Dioxide Anion Gap BUN Creatinine Est GFR ( Amer) Glucose Calcium Magnesium Total Bilirubin AST Alkaline Phosphatase Total Protein Albumin Triglycerides Cholesterol LDL Cholesterol Direct VLDL Cholesterol HDL Cholesterol TSH 2.10 Urine Color KING Urine Appearance SLIGHTLY-CLOUDY Urine pH 6.0 Ur Specific [place] 1.023 Urine Protein 100 H Urine Glucose (UA) >=500 H Urine Ketones TRACE H Urine Blood SMALL H Urine Nitrite NEGATIVE Ur Leukocyte Esterase NEGATIVE Urine WBC (Auto) 4 Urine RBC (Auto) 3 06/16/19 02:59 WBC RBC Hgb Hct MCV MCH MCHC RDW Plt Count Seg Neutrophils % Sodium 140.2 Potassium 3.9 Chloride 98 Carbon Dioxide 31 H Anion Gap 11 BUN 18 Creatinine 0.50 L Est GFR ( Amer) > 60 Glucose 206 H Calcium 9.5 Magnesium Total Bilirubin AST Alkaline Phosphatase Total Protein Albumin Triglycerides 78 Cholesterol 156.06 LDL Cholesterol Direct 136 H VLDL Cholesterol 16.0 HDL Cholesterol 36 L TSH Urine Color Urine Appearance Urine pH Ur Specific [place] Urine Protein Urine Glucose (UA) Urine Ketones Urine Blood Urine Nitrite Ur Leukocyte Esterase Urine WBC (Auto) Urine RBC (Auto) 06/15/19 06/15/19 06/15/19 20:49 20:49 20:49 Creatine Kinase 43 CK-MB (CK-2) 1.26 Troponin I < 0.012 NT-Pro-B Natriuret Pep [id number] H 06/16/19 06/16/19 06/16/19 02:59 02:59 09:23 Creatine Kinase 40 40 CK-MB (CK-2) 0.91 Troponin I 0.015 NT-Pro-B Natriuret Pep 06/16/19 09:23 Creatine Kinase CK-MB (CK-2) 1.20 Troponin I 0.014 NT-Pro-B Natriuret Pep Impressions: Chest X-Ray 06/15/19 21:20 IMPRESSION: Small pleural effusions with adjacent atelectasis. Assessment and Plan - Diagnosis (1) Acute on chronic systolic (congestive) heart failure Is this a current diagnosis for this admission?: Yes (2) A-fib Qualifiers: Atrial fibrillation type: chronic Qualified Code(s): I48.2 - Chronic atrial fibrillation Is this a current diagnosis for this admission?: Yes Plan: Rate controlled (3) Pleural effusion due to CHF (congestive heart failure) Is this a current diagnosis for this admission?: Yes Plan: We will manage the underlying cause. (4) Hypertension Qualifiers: Hypertension type: essential hypertension Qualified Code(s): I10 - Essential (primary) hypertension Is this a current diagnosis for this admission?: Yes Plan: Continue home medication (5) H/O mechanical aortic valve replacement Is this a current diagnosis for this admission?: Yes Plan: Since is not on Coumadin she is rather on Eliquis. 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
[2019-06-16 14:54] LABS: CREATINE KINASE MB 1.14 ng/mL (<4.55); TROPONIN I 0.016 ng/mL
[2019-06-16] MEDS: METOPROLOL SUCCINATE 50 MG TAB.SR.24H PO SCH (17:10)
[2019-06-16] MEDS: SACUBITRIL/VALSARTAN 97 MG/103 MG TABLET PO SCH (19:59)
--- NOTE | 2019-06-16 20:12 | XCELERA REPORT ---
[address] [address] Transthoracic Echocardiogram Report Name: RUBEN MORRIS Age: 83 yrs Gender: Female : 1935 Patient Status: Inpatient Patient Location: [address] [place] [address] Study Date: 06/16/2019 10:19 AM Height: 64 in Weight: 162 lb BSA: 1.8 m2 Procedure: A two-dimensional transthoracic echocardiogram with color flow and Doppler was performed. Study Quality: Fair. Reason For Study: systolic murmur History: systolic murmur. Ordering Physician: EUNICE TOMPKINS Performed By: Judson Suarez Interpretation Summary The left ventricle is moderately dilated. There is mild concentric left ventricular hypertrophy. LV EF is 20% Left ventricular systolic function is severely reduced. LV diastolic function could not be adequately assessed. There is severe global hypokinesis of the left ventricle. There is no thrombus. No ASD , VSD , or PFO seen. The right ventricle is moderately dilated. The right ventricular systolic function is mild to moderately reduced. The right atrium is moderately dilated. The left atrium is moderately dilated. There is mild to moderate mitral annular calcification. There is no evidence of mitral valve prolapse. There is no vegetation seen on the mitral valve. There is no mitral valve stenosis. There is a moderate amount of mitral regurgitation There is no aortic valvular vegetation. There is aortic sclerosis without aortic stenosis. But with poor LV function gradient may be missed. No aortic regurgitation is present. There is no tricuspid stenosis. There is a mild to moderate amount of tricuspid regurgitation There is moderate pulmonary hypertension by echo RVSP is 51 to 56 mm of Hg , with RA mean of 10 to 15. There is no pulmonic valvular stenosis. There is a mild amount of pulmonic regurgitation The aortic root is normal size. The inferior vena cava appeared normal and decreased < 50% with respiration (RAP 10-15 mmHg) There is no pericardial effusion. MMode/2D Measurements & Calculations RVDd: 5.8 cm LVIDd: 5.7 cm FS: 11.9 % Ao root diam: 2.3 cm IVSd: 1.2 cm LVIDs: 5.0 cm EDV(Teich): LVPWd: 1.2 cm 161.6 ml Ao root area: ESV(Teich): 4.1 cm2 120.5 ml LA dimension: EF(Teich): 25.5 % 4.4 cm LVLd ap4: 7.8 cm SV(MOD-sp4): EDV(MOD-sp4): 32.0 ml 115.0 ml LVLs ap4: 7.7 cm ESV(MOD-sp4): 83.0 ml EF(MOD-sp4): 27.8 % Doppler Measurements & Calculations MV E max ciera: MV P1/2t max ciera: Ao V2 max: LV V1 max P.1 cm/sec 120.5 cm/sec 160.2 cm/sec 8.9 mmHg MV A max ciera: MV P1/2t: 44.1 msec Ao max PG: LV V1 max: 38.0 cm/sec MVA(P1/2t): 5.0 cm2 10.3 mmHg 149.3 cm/sec MV E/A: 2.9 MV dec slope: 800.8 cm/sec2 MV dec time: 0.15 sec PA V2 max: PI end-d ciera: TR max ciera: MV P1/2t-pr_phl: 68.2 cm/sec 181.9 cm/sec 319.7 cm/sec 44.1 msec PA max P.9 mmHg TR max P.9 mmHg Left Ventricle The left ventricle is moderately dilated. There is mild concentric left ventricular hypertrophy. LV EF is 20%. Left ventricular systolic function is severely reduced. LV diastolic function could not be adequately assessed. There is severe global hypokinesis of the left ventricle. There is no thrombus. No ASD , VSD , or PFO seen. Right Ventricle The right ventricle is moderately dilated. The right ventricular systolic function is mild to moderately reduced. Atria The right atrium is moderately dilated. The left atrium is moderately dilated. Mitral Valve There is mild to moderate mitral annular calcification. There is no evidence of mitral valve prolapse. There is no vegetation seen on the mitral valve. There is no mitral valve stenosis. There is a moderate amount of mitral regurgitation. Aortic Valve There is no aortic valvular vegetation. There is aortic sclerosis without aortic stenosis. But with poor LV function gradient may be missed. No aortic regurgitation is present. Tricuspid Valve There is no tricuspid stenosis. There is a mild to moderate amount of tricuspid regurgitation. There is moderate pulmonary hypertension by echo. RVSP is 51 to 56 mm of Hg , with RA mean of 10 to 15. Pulmonic Valve There is no pulmonic valvular stenosis. There is a mild amount of pulmonic regurgitation. Great Vessels The aortic root is normal size. The inferior vena cava appeared normal and decreased < 50% with respiration (RAP 10-15 mmHg). Effusions There is no pericardial effusion. : EUNICE TOMPKINS Lakshmi
[2019-06-17] MEDS: SACUBITRIL/VALSARTAN 97 MG/103 MG TABLET PO SCH ×2 (05:47→17:03)
[2019-06-17] MEDS: LEVOTHYROXINE SODIUM 0.05 MG TABLET PO SCH (05:47)
[2019-06-17] MEDS: METOPROLOL SUCCINATE 50 MG TAB.SR.24H PO SCH ×2 (05:48→17:03)
[2019-06-17 06:41] LABS: ABSOLUTE BASOPHILS # (AUTO) 0.1 10^3/uL (0.0-0.2); ABSOLUTE EOSINOPHILS # (AUTO) 0.1 10^3/uL (0.0-0.6); ABSOLUTE LYMPHOCYTES (AUTO) 6.7 10^3/uL (0.5-4.7); ABSOLUTE MONOCYTES (AUTO) 1.1 10^3/uL (0.1-1.4); ABSOLUTE NEUT (AUTO) 8.2 10^3/uL (1.7-8.2); BASOPHILS % (AUTO) 0.5 % (0-2); EOSINOPHILS % (AUTO) 0.8 % (0-6); HEMOGLOBIN 13.4 g/dL (12.0-15.5); LYMPHOCYTES % (AUTO) 41.1 % (13-45); MEAN CORPUSCULAR HEMOGLOBIN 23.6 pg (27.0-33.4); MEAN CORPUSCULAR HGB CONC 31.3 g/dL (32.0-36.0); MEAN CORPUSCULAR VOLUME 75 fl (80-97); MONOCYTES % (AUTO) 6.9 % (3-13); PLATELET COUNT 293 10^3/uL (150-450); RED CELL DISTRIBUTION WIDTH 15.8 % (11.5-14.0); SEGMENTED NEUTROPHILS % (AUTO) 50.7 % (42-78); TOTAL CELLS COUNTED % (AUTO) 100 %; WHITE BLOOD COUNT 16.2 10^3/uL (4.0-10.5)
[2019-06-17 07:01] LABS: ANION GAP 8 (5-19); BLOOD UREA NITROGEN 18 mg/dL (7-20); CALCIUM 9.3 mg/dL (8.4-10.2); CARBON DIOXIDE 32 mmol/L (22-30); CHLORIDE 99 mmol/L (98-107); GLUCOSE 199 mg/dL (75-110); POTASSIUM 3.8 mmol/L (3.6-5.0)
[2019-06-17] MEDS: SPIRONOLACTONE 25 MG TABLET PO SCH (09:11)
[2019-06-17] MEDS: APIXABAN 5 MG TABLET PO SCH ×2 (09:12→17:03)
[2019-06-17] MEDS: DOCUSATE SODIUM 100 MG CAPSULE PO SCH (09:12)
[2019-06-17] MEDS: POTASSIUM CHLORIDE 10 MEQ CAPSULE.ER PO SCH ×2 (09:12→21:11)
[2019-06-17] MEDS: ASPIRIN 81 MG TABLET, ENT COATED PO SCH (09:12)
[2019-06-17] MEDS: FERROUS SULFATE 325 MG TABLET PO SCH (09:12)
[2019-06-17] MEDS: DIGOXIN 0.125 MG TABLET PO SCH (09:13)
[2019-06-17] MEDS: NITROGLYCERIN 5 MG (0.2 MG/HR) PATCH.TD24 TD SCH (09:13)
[2019-06-17] MEDS: PANTOPRAZOLE SODIUM 20 MG TABLET.DR PO SCH (09:13)
[2019-06-17] MEDS: FUROSEMIDE INJ/PF 40 MG/4 ML SDV IV SCH (09:13)
--- NOTE | 2019-06-17 14:45 | PDOC PROGRESS REPORT ---
Subjective Progress Note for:: 06/17/19 Subjective:: This is 83 years old female patient with past medical history of mechanical aortic valve replacement, hypothyroidism, systolic congestive heart failure, hypertension, hypothyroidism and type 2 diabetes mellitus not on any medication presented with chief complaint of shortness of breath. Patient reports that her current situation is precipitated by excess water drinking due to intense thirst. Her BNP is 11,700. I seen patient propped up in bed. She is awake alert oriented. Reports this her shortness of breath is relatively improved. Her medication reviewed and reconciled. 06/17/2019: Patient seen and examined while she is propped up in bed. She is awake alert oriented. She reports this her shortness of breath is relatively improving. Her blood works are unremarkable. Her echocardiogram is reported as the left ventricle is moderately dilated. There is mild concentric left ventricular hypertrophy. Left ventricular ejection fraction is 20%. The left ventricle systolic function is severely reduced. Developed left ventricle diastolic function could not be adequately assessed. Reason For Visit: AFIB, HEART FAILURE Physical Exam Vital Signs: Temp Pulse Resp BP Pulse Ox 97.5 F 73 19 136/85 H 94 06/17/19 08:03 06/17/19 14:00 06/17/19 08:03 06/17/19 08:03 06/17/19 08:03 Intake & Output 06/16/19 06/17/19 06/18/19 06:59 06:59 06:59 Intake Total 0 Output Total 1820 Balance 0 -1820 Weight 75 kg 72.2 kg Results Laboratory Results: 06/17/19 06:14 06/17/19 06:14 06/17/19 06/17/19 06:14 06:14 WBC 16.2 H RBC 5.70 H Hgb 13.4 Hct 43.0 MCV 75 L MCH 23.6 L MCHC 31.3 L RDW 15.8 H Plt Count 293 Seg Neutrophils % 50.7 Sodium 138.7 Potassium 3.8 Chloride 99 Carbon Dioxide 32 H Anion Gap 8 BUN 18 Creatinine 0.61 Est GFR ( Amer) > 60 Glucose 199 H Calcium 9.3 06/15/19 06/15/19 06/15/19 20:49 20:49 20:49 Creatine Kinase 43 CK-MB (CK-2) 1.26 Troponin I < 0.012 NT-Pro-B Natriuret Pep [id number] H 06/16/19 06/16/19 06/16/19 02:59 02:59 09:23 Creatine Kinase 40 40 CK-MB (CK-2) 0.91 Troponin I 0.015 NT-Pro-B Natriuret Pep 06/16/19 06/16/19 06/16/19 09:23 14:20 14:20 Creatine Kinase 41 CK-MB (CK-2) 1.20 1.14 Troponin I 0.014 0.016 NT-Pro-B Natriuret Pep Impressions: Chest X-Ray 06/15/19 21:20 IMPRESSION: Small pleural effusions with adjacent atelectasis. Assessment and Plan - Diagnosis (1) Acute on chronic systolic (congestive) heart failure Is this a current diagnosis for this admission?: Yes Plan: Continue current regimen. (2) A-fib Qualifiers: Atrial fibrillation type: chronic Qualified Code(s): I48.2 - Chronic atrial fibrillation Is this a current diagnosis for this admission?: Yes Plan: Rate controlled (3) Pleural effusion due to CHF (congestive heart failure) Is this a current diagnosis for this admission?: Yes Plan: We will manage the underlying cause. (4) Hypertension Qualifiers: Hypertension type: essential hypertension Qualified Code(s): I10 - Essential (primary) hypertension Is this a current diagnosis for this admission?: Yes Plan: Continue home medication (5) H/O mechanical aortic valve replacement Is this a current diagnosis for this admission?: Yes Plan: Since is not on Coumadin she is rather on Eliquis. 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
--- NOTE | 2019-06-17 21:02 | Progress Note ---
Provider Note Provider Note: CARDIOLOGY PROGRESS NOTE by Dr. Valentina Hewitt on 06/17/2019. SUBJECTIVE: The patient states she has no shortness of breath anymore. There is no cough or PND. There is no chest pain discomfort. The patient is atrial fibrillation with controlled ventricular response. She does have orthopnea. There is no bleeding on Eliquis. There is no TIA CVA symptoms. The patient's leg edema is almost resolved and there is only trace leg edema. Subjective: The patient is well-built well-nourished in no acute distress. She is of her stated age. Selected Entries 06/17/19 06/17/19 06/17/19 08:03 09:00 09:35 Temperature 97.5 F Temperature Oral Source Pulse Rate 87 Heart Rate ( 90 Monitors) Respiratory 19 Rate Blood Pressure 136/85 H Blood Pressure 102 Mean BP Location Right Arm BP Position Supine O2 Sat by Pulse 94 Oximetry Fraction of 21 Inspired Oxygen (FIO2) Oxygen Flow 3 Rate Oxygen Delivery Room Air Method HEAD: Is atraumatic normocephalic. EYES: Pupils equal round regular reactive to light accommodation. Extraocular movements are normal. There is no ventricular pallor. There is no scleral icterus. EARS: Tympanic memories are intact. External auditory canals are clear. NOSE: There is no deviated nasal septum. There is no inflammation of the nasal mucous membrane. MOUTH: Mucous membranes of mouth are moist. Tongue is moist. There is no ulcers. THROAT: There is no redness of the oropharynx. There is no exudates. SKIN: There is no ecchymosis or petechiae. There is no skin lesions or skin rashes. NECK: Is supple. There is no JVD. Carotids are equal there is no bruit. There is transmitted aortic stenosis murmur heard over both carotids. There is no carotid delay. There is no lymphadenopathy. There is no goiter. There is no accessory muscles of respiration in use. Trachea central. LUNGS: Shows diminished air entry prolonged expiration. There is no rhonchi rales or wheezing. On percussion there is hyperresonance. HEART: S1-S2 is heard. S1 is of variable intensity. There is murmur of mild aortic stenosis/sclerosis. A2 is well preserved. There is no carotid delay. There is no thrill. There is murmur of tricuspid regurgitation mitral regurgitation present. There is no aortic regurgitation murmur heard. There is no S3 or S4 gallops. There is no rub. ABDOMEN: Is soft. There is no hepatospleno megaly. Bowel sounds well heard. There is no tender areas masses. EXTREMITIES: Femorals are well felt. There is no femoral bruits. Leg pulses well felt. There is trace pedal edema. There is no DVT or cellulitis. There is no cyanosis or clubbing. Capillary refill is normal. There is no calf tenderness. DIRECTOR OF PURCHASING: The patient is conscious awake alert oriented x3 with no focal deficits. PSYCHIATRIC: Patient judgment and insight are intact her affect is normal. Abnormal - 24 hr 06/17/19 06/17/19 06/17/19 06:14 06:14 06:14 WBC 16.2 H RBC 5.70 H MCV 75 L MCH 23.6 L MCHC 31.3 L RDW 15.8 H Absolute Lymphs (auto) 6.7 H Carbon Dioxide 32 H Glucose 199 H Hemoglobin A1c % 8.6 H Chest X-Ray 06/15/19 21:20 IMPRESSION: Small pleural effusions with adjacent atelectasis. She is echocardiogram shows dilated LV with severely reduced LV ejection fraction. There is prosthetic aortic valve replacement with no restenosis. There is significant mitral regurgitation and tricuspid regurgitation. There is moderate pulmonary hypertension. Impression/RECOMMENDATION: 1. 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 At present seems to be compensated. The patient has been given congestive heart failure teaching. 2. Dilated cardiomyopathy with severely reduced LV ejection fraction. Echo of this admission shows LV ejection fraction 20% the patient is tolerating increased dose of Entresto. Will go with Toprol-XL at present. The patient will transition back to be supposed all at home. This is since been suppressed I will is not performing her here. .3. History of bovine aortic valve replacement: Echo shows no significant re- stenosis. There is no aortic regurgitation. Patient and daughter aware of need for SBE prophylaxis with antibiotics prior to dental GI/ surgery/procedures. 4. COPD: Possible acute exacerbation has resolved. 5. Hypertension: Blood pressure well controlled. 6. Diabetes mellitus type 2: Note that the patient's hemoglobin A1c is very high. Needs more aggressive control of blood sugars. 7. Hypothyroidism: Continue thyroid replacement 8. GERD: Symptoms controlled at present. 9. Arthritis: At present no evidence of any acute inflammation. Of note the patient states in the past she has had mild nonobstructive coronary artery disease, and at the time of aortic valve replacement did not coronary artery bypass graft. The patient in the past has had a AICD placement. But due to incessant shocks the AICD system of the leads were removed. The patient does not want a another AICD placed. She is aware of the risks. Daughter was present during this conversation. Medications reviewed. Medication adjustment and the medic medication regimen and management plan discussed with attending physician in detail. Also discussed with the patient and patient daughter. Note that the patient is ambulating with physical therapy. Hopefully will be discharged within the next 24 to 48 hours. Medical decision making is of moderate to high complexity. Will follow.
[2019-06-18] MEDS: METOPROLOL SUCCINATE 50 MG TAB.SR.24H PO SCH ×2 (05:00→17:38)
[2019-06-18] MEDS: LEVOTHYROXINE SODIUM 0.05 MG TABLET PO SCH (05:00)
[2019-06-18] MEDS: SACUBITRIL/VALSARTAN 97 MG/103 MG TABLET PO SCH ×2 (05:00→17:38)
[2019-06-18] MEDS: FUROSEMIDE INJ/PF 40 MG/4 ML SDV IV SCH (09:23)
[2019-06-18] MEDS: POTASSIUM CHLORIDE 10 MEQ CAPSULE.ER PO SCH ×2 (09:24→21:48)
[2019-06-18] MEDS: APIXABAN 5 MG TABLET PO SCH ×2 (09:24→17:38)
[2019-06-18] MEDS: ASPIRIN 81 MG TABLET, ENT COATED PO SCH (09:24)
[2019-06-18] MEDS: FERROUS SULFATE 325 MG TABLET PO SCH (09:24)
[2019-06-18] MEDS: DOCUSATE SODIUM 100 MG CAPSULE PO SCH (09:24)
[2019-06-18] MEDS: SPIRONOLACTONE 25 MG TABLET PO SCH (09:24)
[2019-06-18] MEDS: PANTOPRAZOLE SODIUM 20 MG TABLET.DR PO SCH (09:25)
[2019-06-18] MEDS: DIGOXIN 0.125 MG TABLET PO SCH (09:26)
[2019-06-18] MEDS: NITROGLYCERIN 5 MG (0.2 MG/HR) PATCH.TD24 TD SCH (09:29)
--- NOTE | 2019-06-18 12:49 | RADIOLOGY REPORT (SQ) ---
EXAM DESCRIPTION: CHEST SINGLE VIEW COMPLETED DATE/TIME: 06/18/2019 12:18 pm REASON FOR STUDY: CHF COMPARISON: 06/15/2019. EXAM PARAMETERS: NUMBER OF VIEWS: One view. TECHNIQUE: Single frontal radiographic view of the chest acquired. RADIATION DOSE: NA LIMITATIONS: None. FINDINGS: LUNGS AND PLEURA: Improved aeration with decrease in the left pleural effusion. Right ple ural effusion has resolved. MEDIASTINUM AND HILAR STRUCTURES: No masses. Contour normal. HEART AND VASCULAR STRUCTURES: Cardiomegaly. BONES: No acute findings. HARDWARE: Sternotomy wires. OTHER: No other significant finding. IMPRESSION: IMPROVED APPEARANCE. LEFT PLEURAL EFFUSION HAS DECREASED AND THE RIGHT PLEURAL EFFUSION HAS RESOLVED. TECHNICAL DOCUMENTATION: JOB ID: [id number] [employer] All Rights Reserved Reading location - IP/workstation name: [email or web address]
--- NOTE | 2019-06-18 13:41 | PDOC PROGRESS REPORT ---
Subjective Progress Note for:: 06/18/19 Subjective:: This is 83 years old female patient with past medical history of mechanical aortic valve replacement, hypothyroidism, systolic congestive heart failure, hypertension, hypothyroidism and type 2 diabetes mellitus not on any medication presented with chief complaint of shortness of breath. Patient reports that her current situation is precipitated by excess water drinking due to intense thirst. Her BNP is 11,700. I seen patient propped up in bed. She is awake alert oriented. Reports this her shortness of breath is relatively improved. Her medication reviewed and reconciled. 06/17/2019: Patient seen and examined while she is propped up in bed. She is awake alert oriented. She reports this her shortness of breath is relatively improving. Her blood works are unremarkable. Her echocardiogram is reported as the left ventricle is moderately dilated. There is mild concentric left ventricular hypertrophy. Left ventricular ejection fraction is 20%. The left ventricle systolic function is severely reduced. Developed left ventricle diastolic function could not be adequately assessed. 06/18/2019: Patient seen propped up in bed and resting comfortably. She reports this her shortness of breath has been subsiding. No fever, chills, nausea or vomiting. She eats well and she tolerates well. Her repeat chest x-ray is reported as left pleural effusion has decreased in the right pleural effusion has resolved. Patient is potential discharge if she remains stable. Reason For Visit: AFIB, HEART FAILURE Physical Exam Vital Signs: Temp Pulse Resp BP Pulse Ox 97.5 F 89 18 106/75 94 06/18/19 11:38 06/18/19 11:38 06/18/19 11:38 06/18/19 11:38 06/18/19 11:38 Intake & Output 06/17/19 06/18/19 06/19/19 06:59 06:59 06:59 Intake Total 840 460 Output Total 1820 850 Balance -1820 840 -390 Weight 72.2 kg 69.4 kg General appearance: PRESENT: no acute distress Eye exam: PRESENT: conjunctiva pink Mouth exam: PRESENT: moist Neck exam: ABSENT: carotid bruit, JVD, lymphadenopathy, thyromegaly Respiratory exam: PRESENT: decreased breath sounds Cardiovascular exam: PRESENT: RRR. ABSENT: diastolic murmur, rubs, systolic murmur GI/Abdominal exam: PRESENT: normal bowel sounds, soft. ABSENT: distended, guarding, mass, organolmegaly, rebound, tenderness Neurological exam: PRESENT: alert, oriented to person, oriented to place, oriented to time, oriented to situation Results Laboratory Results: 06/17/19 06:14 06/17/19 06:14 06/15/19 06/15/19 06/15/19 20:49 20:49 20:49 Creatine Kinase 43 CK-MB (CK-2) 1.26 Troponin I < 0.012 NT-Pro-B Natriuret Pep 97912 H 06/16/19 06/16/19 06/16/19 02:59 02:59 09:23 Creatine Kinase 40 40 CK-MB (CK-2) 0.91 Troponin I 0.015 NT-Pro-B Natriuret Pep 06/16/19 06/16/19 06/16/19 09:23 14:20 14:20 Creatine Kinase 41 CK-MB (CK-2) 1.20 1.14 Troponin I 0.014 0.016 NT-Pro-B Natriuret Pep Impressions: Chest X-Ray 06/18/19 00:00 IMPRESSION: IMPROVED APPEARANCE. LEFT PLEURAL EFFUSION HAS DECREASED AND THE RIGHT PLEURAL EFFUSION HAS RESOLVED. Assessment and Plan - Diagnosis (1) Acute on chronic systolic (congestive) heart failure Is this a current diagnosis for this admission?: Yes Plan: Has been improving (2) A-fib Qualifiers: Atrial fibrillation type: chronic Qualified Code(s): I48.2 - Chronic atrial fibrillation Is this a current diagnosis for this admission?: Yes Plan: Rate controlled (3) Pleural effusion due to CHF (congestive heart failure) Is this a current diagnosis for this admission?: Yes Plan: Left pleural effusion has decreased in the right pleural effusion has resolved per radiologist. (4) Hypertension Qualifiers: Hypertension type: essential hypertension Qualified Code(s): I10 - Essential (primary) hypertension Is this a current diagnosis for this admission?: Yes Plan: Continue home medication (5) H/O mechanical aortic valve replacement Is this a current diagnosis for this admission?: Yes Plan: Since is not on Coumadin she is rather on Eliquis. 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
[2019-06-19] MEDS: LEVOTHYROXINE SODIUM 0.05 MG TABLET PO SCH (05:54)
[2019-06-19] MEDS: SACUBITRIL/VALSARTAN 97 MG/103 MG TABLET PO SCH (05:54)
[2019-06-19] MEDS: METOPROLOL SUCCINATE 50 MG TAB.SR.24H PO SCH (05:55)
--- NOTE | 2019-06-19 09:16 | PDOC DISCHARGE SUMMARY ---
General - Admit/Disc Date/PCP Admission Date/Primary Care Provider: 06/16/19 12:24 EDI BECKWITH MD Discharge Date: 06/19/19 - Discharge Diagnosis (1) Acute on chronic systolic (congestive) heart failure Is this a current diagnosis for this admission?: Yes (2) A-fib Is this a current diagnosis for this admission?: Yes (3) Pleural effusion due to CHF (congestive heart failure) Is this a current diagnosis for this admission?: Yes (4) Hypertension Is this a current diagnosis for this admission?: Yes (5) H/O mechanical aortic valve replacement Is this a current diagnosis for this admission?: Yes (6) Type 2 diabetes mellitus Is this a current diagnosis for this admission?: Yes - Additional Information Resuscitation Status: Full Code Discharge Diet: Cardiac Discharge Activity: Activity As Tolerated, Balance Activity w/Rest, Other Home Medications: Apixaban [Eliquis 5 mg Tablet] 5 mg PO BID 06/16/19 Aspirin [Ecotrin 81 mg EC Tablet] 81 mg PO DAILY 06/16/19 Bisoprolol Fumarate [Zebeta 5 mg Tablet] 5 mg PO BID 06/16/19 Digoxin [Lanoxin 0.125 mg Tablet] 0.125 mg PO DAILY 06/16/19 Esomeprazole Magnesium [Nexium 24Hr] 20 mg PO DAILY 06/16/19 Ferrous Sulfate [Feosol 325 mg Tablet] 325 mg PO DAILY 06/16/19 Furosemide [Lasix 20 mg Tablet] 20 mg PO DAILY 06/16/19 Levothyroxine Sodium [Synthroid 0.05 mg Tablet] 0.05 mg PO Q6AM 06/16/19 Metoprolol Tartrate [Lopressor 25 mg Tablet] 25 mg PO Q12 06/16/19 Sacubitril/Valsartan [Entresto 49 mg/51 mg Tablet] 1 tab PO BID 06/16/19 Spironolactone [Aldactone 25 mg Tablet] 12.5 mg PO DAILY 06/16/19 History of Present Illness History of Present Illness: RUBEN MORRIS is a 83 year old female with a past medical history of atrial fibrillation, mechanical aortic valve replacement and congestive heart failure. Patient presents with 3 days of increasing shortness of breath developing wheeze prompting evaluation by primary paperhanger pipe Dr. Beckwith. She was started [place] six but admitted intolerable thirst prompting her to drink more. She developed lower extremity edema, orthopnea, palpitations and tachycardia prompting emergency department evaluation. In the emergency room she is found to have acute exacerbation of congestive heart failure, A. fib with controlled rate, BNP of greater than 100,000 and small bilateral pleural effusions with pulmonary vascular congestion. She denies chest pain, nausea or vomiting. She is started on IV Lasix and referred to the hospitalist for admission. She is unaware of dietary restrictions but is otherwise compliant with medications. Hospital Course Hospital Course: his is 83 years old female patient with past medical history of mechanical aortic valve replacement, hypothyroidism, systolic congestive heart failure, hypertension, hypothyroidism and type 2 diabetes mellitus not on any medication presented with chief complaint of shortness of breath. Patient reports that her current situation is precipitated by excess water drinking due to intense thirst. Her BNP is 11,700. I seen patient propped up in bed. She is awake alert oriented. Reports this her shortness of breath is relatively improved. Her medication reviewed and reconciled. 06/17/2019: Patient seen and examined while she is propped up in bed. She is awake alert oriented. She reports this her shortness of breath is relatively improving. Her blood works are unremarkable. Her echocardiogram is reported as the left ventricle is moderately dilated. There is mild concentric left ventricular hypertrophy. Left ventricular ejection fraction is 20%. The left ventricle systolic function is severely reduced. Developed left ventricle diastolic function could not be adequately assessed. 06/18/2019: Patient seen propped up in bed and resting comfortably. She reports this her shortness of breath has been subsiding. No fever, chills, nausea or vomiting. She eats well and she tolerates well. Her repeat chest x-ray is reported as left pleural effusion has decreased in the right pleural effusion has resolved. Patient is potential discharge if she remains stable. 06/19/2019: No adverse event overnight. Patient just finished 100% of breakfast. She did not have any fever nausea or vomiting. Her shortness of breath has improved and currently she is at her baseline. Patient is stable enough to go home. I will continue her home medication as it is except I will increase the dose of her Lasix from 20 mg p.o. daily to 40 mg p.o. daily. She will see her primary paperhanger pipe Dr. Beckwith in 1 week. Physical Exam Vital Signs: Temp Pulse Resp BP Pulse Ox 97.7 F 77 20 136/85 H 96 06/19/19 03:29 06/19/19 07:00 06/19/19 03:29 06/19/19 03:29 06/19/19 03:29 Intake & Output 06/18/19 06/19/19 06/20/19 06:59 06:59 06:59 Intake Total 840 800 Output Total 1050 Balance 840 -250 Weight 69.4 kg 71.5 kg General appearance: PRESENT: no acute distress Head exam: PRESENT: atraumatic Eye exam: PRESENT: conjunctiva pink Neck exam: ABSENT: carotid bruit, JVD, lymphadenopathy, thyromegaly Respiratory exam: PRESENT: decreased breath sounds Cardiovascular exam: PRESENT: irregular rhythm GI/Abdominal exam: PRESENT: normal bowel sounds, soft. ABSENT: distended, guarding, mass, organolmegaly, rebound, tenderness Neurological exam: PRESENT: alert, awake, oriented to person, oriented to place, oriented to time, oriented to situation Results Laboratory Results: 06/17/19 06:14 06/17/19 06:14 06/15/19 06/15/19 06/15/19 20:49 20:49 20:49 Creatine Kinase 43 CK-MB (CK-2) 1.26 Troponin I < 0.012 NT-Pro-B Natriuret Pep 53432 H 06/16/19 06/16/19 06/16/19 02:59 02:59 09:23 Creatine Kinase 40 40 CK-MB (CK-2) 0.91 Troponin I 0.015 NT-Pro-B Natriuret Pep 06/16/19 06/16/19 06/16/19 09:23 14:20 14:20 Creatine Kinase 41 CK-MB (CK-2) 1.20 1.14 Troponin I 0.014 0.016 NT-Pro-B Natriuret Pep Impressions: Chest X-Ray 06/18/19 00:00 IMPRESSION: IMPROVED APPEARANCE. LEFT PLEURAL EFFUSION HAS DECREASED AND THE RIGHT PLEURAL EFFUSION HAS RESOLVED. Qualifiers - * PATIENT BEING DISCHARGED WITH ANY OF THE FOLLOWING DIAGNOSIS: No Acute Heart Failure - Is this a Heart Failure Patient?: Yes Documentation of LVEF assessment?: Yes LVEF < 40%?: Yes-if yes answer questions a through e a) Discharged on ACEI?: N/A Discharged on ARNI b) Discharges on ARB?: N/A-Discharged on ARNI c) Discharged on ARNI?: Yes d) Discharged on evidence-based Beta carol(carvedilol, sustained release metoprolol succinate, or bisoprolol)?: Yes e) For LVEF <35%, discharged on Aldosterone antagonist?: Yes 3. Anticoagulant therapy for permanect/persistent/paraoxysmal Afib or Aflutter: Yes Follow-up Appointment scheduled within 7 days?: Yes
[2019-06-19] MEDS: ASPIRIN 81 MG TABLET, ENT COATED PO SCH (09:43)
[2019-06-19] MEDS: APIXABAN 5 MG TABLET PO SCH (09:43)
[2019-06-19] MEDS: FUROSEMIDE INJ/PF 40 MG/4 ML SDV IV SCH (09:43)
[2019-06-19] MEDS: SPIRONOLACTONE 25 MG TABLET PO SCH (09:43)
[2019-06-19] MEDS: FERROUS SULFATE 325 MG TABLET PO SCH (09:44)
[2019-06-19] MEDS: DOCUSATE SODIUM 100 MG CAPSULE PO SCH (09:44)
[2019-06-19] MEDS: POTASSIUM CHLORIDE 10 MEQ CAPSULE.ER PO SCH (09:44)
[2019-06-19] MEDS: PANTOPRAZOLE SODIUM 20 MG TABLET.DR PO SCH (09:44)
[2019-06-19] MEDS: NITROGLYCERIN 5 MG (0.2 MG/HR) PATCH.TD24 TD SCH (09:45)
[2019-06-19] MEDS: DIGOXIN 0.125 MG TABLET PO SCH (09:46)
[2019-06-19 10:53] VITALS: BP 138/96
[2019-06-20] MEDS ORDERED: FUROSEMIDE 20 MG TABLET PO SCH (10:00)
== END 2019-06-19 13:02 | disposition home or self-care (01) | DRG 293 ==
LOC: ER 20:11 → EH 06-16 00:26 → INTOOBSV 06-16 00:26 → 3S 06-16 02:08 → OBSVTOIN 06-16 12:24
PROVIDERS: ADMIT Internal Medicine; ATTEND Internal Medicine
DX: I11.0 Hypertensive heart disease with heart failure (principal); I50.23 Acute on chronic systolic (congestive) heart failure; E03.9 Hypothyroidism, unspecified; E11.9 Type 2 diabetes mellitus without complications; I48.2 Chronic atrial fibrillation; J44.9 Chronic obstructive pulmonary disease, unspecified; K21.9 Gastro-esophageal reflux disease without esophagitis; M19.90 Unspecified osteoarthritis, unspecified site; Z79.02 Long term (current) use of antithrombotics/antiplatelets; Z95.2 Presence of prosthetic heart valve; Z79.899 Other long term (current) drug therapy
CPT/HCPCS: 36415; 71045; 71046; 80048; 80053; 80061; 80162; 81001; 82550; 82553; 83036; 83735; 83880; 84439; 84443; 84481; 84484; 85025; 85610; 85730; 93005; 93010; 93306; 94660; 94799; 96374; 99285; G0378; J1940; J3490

== ENCOUNTER 2020-04-10 04:17 | Inpatient (IN) | payer MEDICARE ==
[2020-04-10] MEDS ORDERED: ASPIRIN 81 MG TABLET, CHEWABLE PO ONE (05:14)
[2020-04-10] MEDS ORDERED: NITROGLYCERIN 2% OINTMENT 1 GM PACKET TP ONE (05:14)
[2020-04-10] MEDS ORDERED: FUROSEMIDE INJ/PF 40 MG/4 ML SDV IV ONE (05:14)
--- NOTE | 2020-04-10 05:18 | ER Document Report ---
ED Respiratory Problem <LINETTEDONNIE - Last Filed: 04/10/20 08:03> - General TRAVEL OUTSIDE OF THE [place] IN LAST 30 DAYS: No <FLORENTINO SAGE - Last Filed: 04/12/20 10:11> - General Chief Complaint: Shortness Of Breath Stated Complaint: SHORTNESS OF BREATH Time Seen by Provider: 04/10/20 04:59 Notes: 84 year old female arrives with complaints of SOB over the last week. She lives at home with her daughter timi and her pmh includes longstanding a fib - eloquis taker -, htn, chf, aortic valve replacement. No fever and no chest pain. Dr. Back is her general manager land department. She has no travel history or exposure to anyone sick. She has noted her legs increase in size over the last week and difficuty with laying flat in the bed. (FLORENTINO SAGE) - Related Data Allergies/Adverse Reactions: No Known Allergies Allergy (Verified 04/10/20 04:36) Past Medical History - Social History Smoking Status: Never Smoker Frequency of alcohol use: None Drug Abuse: None Family History: Hypertension Patient has homicidal ideation: No - Past Medical History Cardiac Medical History: Reports: Hx Congestive Heart Failure, Hx Hypertension Renal/ Medical History: Denies: Hx Peritoneal Dialysis Psychiatric Medical History: Denies: Hx Depression Past Surgical History: Reports: Hx Cardiac Surgery <FLORENTINO SAGE - Last Filed: 04/12/20 10:11> Physical Exam - Vital signs Interpretation: Normal - General General appearance: Appears well, Alert - HEENT Head: Normocephalic, Atraumatic Eyes: Normal Pupils: PERRL - Respiratory Respiratory status: No respiratory distress Chest status: Nontender Breath sounds: Decreased air movement, Rales - at bases Chest palpation: Normal - Cardiovascular Rhythm: Regular Heart sounds: Normal auscultation Murmur: No - Abdominal Inspection: Normal Distension: No distension Bowel sounds: Normal Tenderness: Nontender Organomegaly: No organomegaly - Back Back: Normal, Nontender - Extremities General upper extremity: Normal inspection, Nontender, Normal color, Normal ROM, Normal temperature General lower extremity: Normal inspection, Nontender, Normal color, Normal ROM, Normal temperature, Normal weight bearing. No: Lisa's sign - Neurological Neuro grossly intact: Yes Cognition: Normal Orientation: AAOx4 Frederic Coma Scale Eye Opening: Spontaneous Colver Coma Scale Verbal: Oriented Frederic Coma Scale Motor: Obeys Commands Frederic Coma Scale Total: 15 Speech: Normal Motor strength normal: LUE, RUE, LLE, RLE Sensory: Normal - Psychological Associated symptoms: Normal affect, Normal mood - Skin Skin Temperature: Warm Skin Moisture: Dry Skin Color: Normal <FLORENTINO SAEG P - Last Filed: 04/12/20 10:11> - Vital signs Vitals: Pulse Resp BP Pulse Ox 133 H 14 147/108 H 94 04/10/20 04:33 04/10/20 04:33 04/10/20 04:33 04/10/20 04:33 Course - Laboratory Result Diagrams: 04/10/20 05:24 04/10/20 05:24 <DONNIE SUE - Last Filed: 04/10/20 08:03> - Laboratory Result Diagrams: 04/12/20 05:56 04/12/20 05:56 - Diagnostic Test Radiology reviewed: Image reviewed, Reports reviewed - EKG Interpretation by Me Rhythm: A.Fib - A fib 85 BPM PVC repol abnormality without st elevation my interpretation. <FLORENTINO SAGE P - Last Filed: 04/12/20 10:11> - Vital Signs Vital signs: Temp Pulse Resp BP Pulse Ox 97.7 F 96 17 154/78 H 95 04/12/20 08:49 04/12/20 08:49 04/12/20 08:49 04/12/20 08:49 04/12/20 08:49 - Laboratory Laboratory results interpreted by me: 04/10/20 04/10/20 04/10/20 05:24 05:24 05:24 WBC 21.3 H RBC 5.73 H MCH 25.4 L MCHC 31.2 L RDW 15.9 H Seg Neuts % (Manual) 41 L Lymphocytes % (Manual) 52 H Abs Neuts (Manual) 8.7 H Abs Lymphs (Manual) 11.1 H Abs Monocytes (Manual) 1.5 H BUN 23 H Creatinine 0.44 L Glucose 327 H Total Bilirubin 1.9 H Creatine Kinase 29 L NT-Pro-B Natriuret Pep 98595 H Digoxin 0.63 L Discharge - Discharge Admitting Provider: Myra (Hospitalist) Unit Admitted: Telemetry <DONNIE SUE - Last Filed: 04/10/20 08:03> <FLORENTINO SAEG - Last Filed: 04/12/20 10:11> - Discharge Clinical Impression: Pleural effusion due to CHF (congestive heart failure) CHF exacerbation Qualifiers: Heart failure type: systolic Qualified Code(s): I50.23 - Acute on chronic systolic (congestive) heart failure A-fib Qualifiers: Atrial fibrillation type: unspecified Qualified Code(s): I48.91 - Unspecified atrial fibrillation Condition: Good Disposition: ADMITTED INPATIENT
--- NOTE | 2020-04-10 05:40 | RADIOLOGY REPORT (SQ) ---
EXAM DESCRIPTION: [facility]: XR CHEST 1 VIEW CLINICAL HISTORY: 84 years Female; SOB ; COMPARISON: 06/18/2019 FINDINGS: Lungs: There is blunting of both costophrenic angles, consistent with small bilateral pleural effusions. There is associated partial atelectasis of both lower lobes. Cannot exclude underlying infiltrate. No pneumothorax. Mediastinum: Sternal wires are again noted. Heart appears enlarged, although this may be exaggerated by positioning. Superior mediastinum is unremarkable. Bones: Bony structures are unremarkable. IMPRESSION: 1. Small bilateral pleural effusions with partial lower lobe atelectasis, likely CHF 2. Previous sternotomy. Cardiomegaly, as on prior exam.
[2020-04-10 05:43] LABS: HEMATOCRIT 46.6 % (36.0-47.0); HEMOGLOBIN 14.6 g/dL (12.0-15.5); MEAN CORPUSCULAR HEMOGLOBIN 25.4 pg (27.0-33.4); MEAN CORPUSCULAR HGB CONC 31.2 g/dL (32.0-36.0); MEAN CORPUSCULAR VOLUME 81 fl (80-97); PLATELET COUNT 314 10^3/uL (150-450); RED BLOOD COUNT 5.73 10^6/uL (3.72-5.28); RED CELL DISTRIBUTION WIDTH 15.9 % (11.5-14.0); WHITE BLOOD COUNT 21.3 10^3/uL (4.0-10.5)
[2020-04-10 06:00] LABS: ALBUMIN 4.4 g/dL (3.5-5.0); ALKALINE PHOSPHATASE 99 U/L (38-126); ANION GAP 9 (5-19); ASPARTATE AMINO TRANSFERASE 28 U/L (14-36); BILIRUBIN,DIRECT 0.2 mg/dL (0.0-0.4); BILIRUBIN,TOTAL 1.9 mg/dL (0.2-1.3); BLOOD UREA NITROGEN 23 mg/dL (7-20); CALCIUM 9.8 mg/dL (8.4-10.2); CARBON DIOXIDE 28 mmol/L (22-30); CHLORIDE 102 mmol/L (98-107); CREATINE KINASE 29 U/L (30-135); DIGOXIN 0.63 ng/mL (0.8-2.0); GLUCOSE 327 mg/dL (75-110); POTASSIUM 4.2 mmol/L (3.6-5.0); TOTAL PROTEIN 7.2 g/dL (6.3-8.2)
[2020-04-10 06:10] LABS: CREATINE KINASE MB 1.25 ng/mL (<4.55); TROPONIN I 0.012 ng/mL
[2020-04-10 06:27] LABS: ABSOLUTE LYMPHOCYTES# (MANUAL) 11.1 10^3/uL (0.5-4.7); ABSOLUTE MONOCYTES # (MANUAL) 1.5 10^3/uL (0.1-1.4); BASOPHILS % (MANUAL) 0 % (0-2); EOSINOPHILS % (MANUAL) 0 % (0-6); LYMPHOCYTES % (MANUAL) 52 % (13-45); MONOCYTES % (MANUAL) 7 % (3-13); SEGMENTED NEUTROPHILS % (MAN) 41 % (42-78); TOTAL CELLS COUNTED 100
[2020-04-10 06:29] LABS: ANISOCYTOSIS SLIGHT; OVALOCYTES SLIGHT; PLATELET COMMENT ADEQUATE; PLATELET GIANT PRESENT; POLYCHROMASIA SLIGHT
[2020-04-10] MEDS ORDERED: DIGOXIN INJ 0.5 MG/2 ML AMPULE IV ONE (07:22)
[2020-04-10] MEDS ORDERED: MAGNESIUM HYDROXIDE SUSP 30 ML UDCUP PO PRN (09:13)
[2020-04-10] MEDS ORDERED: ACETAMINOPHEN 325 MG TABLET PO PRN (09:13)
[2020-04-10] MEDS ORDERED: MAG HYDROX/AL HYDROX/SIMETH SUSP 30 ML UDCUP PO PRN (09:13)
--- NOTE | 2020-04-10 09:13 | PDOC H&P ---
History of Present Illness Admission Date/PCP: 04/10/20 08:09 NISHA HUMMEL MD Patient complains of: Shortness of breath. History of Present Illness: RUBEN MORRIS is a 84 year old female with history of severe CHF Past Medical History Cardiac Medical History: Reports: Atrial Fibrillation, Congestive Heart Failure, Coronary Artery Disease, Hypertension Pulmonary Medical History: Reports: None EENT Medical History: Reports: None Neurological Medical History: Denies: Ischemic CVA, Seizures Endocrine Medical History: Reports: Hypothyroidism Denies: Diabetes Mellitus Type 2 Renal/ Medical History: Denies: Chronic Kidney Disease Malignancy Medical History: Reports: None GI Medical History: Reports: None Musculoskeltal Medical History: Reports: Arthritis, Other - Closed fractures arms Skin Medical History: Reports: Other - Keratoses Psychiatric Medical History: Denies: Alcohol Dependency, Depression, Tobacco Dependency Traumatic Medical History: Reports: None Hematology: Denies: Anemia, Bleeding Tendencies Infectious Medical History: Denies: Clostridium Difficile, Hepatitis B, HIV Past Surgical History Past Surgical History: Reports: Cardiac Catheterization, Other - Bovine valve replacement Social History Information Source: Patient, [facility] Records Lives with: Family - Lives with Daughter Smoking Status: Never Smoker Electronic Cigarette use?: No Frequency of Alcohol Use: None Hx Recreational Drug Use: No Drugs: None Hx Prescription Drug Abuse: No - Advance Directive Resuscitation Status: Do Not Resuscitate Surrogate healthcare decision maker:: Daughter Family History Family History: CAD, DM, Hypertension, Other - CHF Parental Family History Reviewed: Yes Children Family History Reviewed: Yes Sibling(s) Family History Reviewed.: Yes Medication/Allergy Home Medications: Apixaban [Eliquis 5 mg Tablet] 5 mg PO BID 06/16/19 Aspirin [Ecotrin 81 mg EC Tablet] 81 mg PO DAILY 06/16/19 Bisoprolol Fumarate [Zebeta 5 mg Tablet] 5 mg PO BID 06/16/19 Digoxin [Lanoxin 0.125 mg Tablet] 0.125 mg PO DAILY 06/16/19 Levothyroxine Sodium [Synthroid 0.05 mg Tablet] 0.05 mg PO DAILY 06/16/19 Spironolactone [Aldactone 25 mg Tablet] 12.5 mg PO DAILY 06/16/19 Allergies/Adverse Reactions: No Known Allergies Allergy (Verified 04/10/20 04:36) Review of Systems All systems: reviewed and no additional remarkable complaints except as stated Constitutional: PRESENT: weight gain Cardiovascular: PRESENT: dyspnea on exertion, edema, orthropnea Integumentary: PRESENT: other - solar keratosis nose Physical Exam Vital Signs: Temp Pulse Resp BP Pulse Ox 97.5 F 133 H 17 184/104 H 94 04/10/20 04:36 04/10/20 04:36 04/10/20 07:01 04/10/20 07:01 04/10/20 07:01 Intake & Output 04/09/20 04/10/20 04/11/20 06:59 06:59 06:59 Weight 68.039 kg General appearance: PRESENT: no acute distress, cooperative, well-developed. ABSENT: disheveled Head exam: PRESENT: atraumatic, normocephalic Eye exam: PRESENT: conjunctiva pale, scleral icterus Ear exam: PRESENT: normal external ear exam. ABSENT: bleeding, drainage Mouth exam: PRESENT: moist, tongue midline Neck exam: ABSENT: carotid bruit, lymphadenopathy, tenderness, tracheostomy Respiratory exam: PRESENT: rales, symmetrical, unlabored. ABSENT: accessory muscle use, decreased breath sounds - Bilateral bases, rhonchi, tachypnea, wheezes Cardiovascular exam: PRESENT: irregular rhythm, systolic murmur Pulses: PRESENT: normal radial pulses, normal dorsalis pedis pul GI/Abdominal exam: PRESENT: normal bowel sounds, soft. ABSENT: distended, guarding, tenderness Rectal exam: PRESENT: deferred Gentrourinary exam: ABSENT: indwelling catheter Extremities exam: PRESENT: pedal edema, +1 edema. ABSENT: calf tenderness Musculoskeletal exam: PRESENT: ambulatory, normal inspection. ABSENT: deformity Neurological exam: PRESENT: alert, awake, oriented to person, oriented to place, oriented to time, oriented to situation, CN II-XII grossly intact. ABSENT: altered, motor sensory deficit Psychiatric exam: PRESENT: appropriate affect, normal mood. ABSENT: agitated, anxious, depressed, flat affect, manic Focused psych exam: ABSENT: delusional, paranoid, restlessness Skin exam: PRESENT: normal color, other - Keratoses. ABSENT: abrasion, erythema Results Laboratory Results: 04/10/20 05:24 04/10/20 05:24 04/10/20 04/10/20 04/10/20 05:24 05:24 05:24 WBC 21.3 H RBC 5.73 H Hgb 14.6 Hct 46.6 MCV 81 MCH 25.4 L MCHC 31.2 L RDW 15.9 H Plt Count 314 Seg Neutrophils % Not Reportable Sodium 138.8 Potassium 4.2 Chloride 102 Carbon Dioxide 28 Anion Gap 9 BUN 23 H Creatinine 0.44 L Est GFR ( Amer) > 60 Glucose 327 H Calcium 9.8 Magnesium 1.9 Total Bilirubin 1.9 H AST 28 Alkaline Phosphatase 99 Total Protein 7.2 Albumin 4.4 04/10/20 04/10/20 05:24 05:24 Creatine Kinase 29 L CK-MB (CK-2) 1.25 Troponin I 0.012 NT-Pro-B Natriuret Pep 48515 H Impressions: Chest X-Ray 04/10/20 04:46 IMPRESSION: 1. Small bilateral pleural effusions with partial lower lobe atelectasis, likely CHF 2. Previous sternotomy. Cardiomegaly, as on prior exam. Assessment and Plan - Diagnosis (1) Acute on chronic systolic (congestive) heart failure Is this a current diagnosis for this admission?: Yes Plan: 04/10/[address] Hewitt. I will obtain consult. May 2019 echocardiogram revealed EF of only 20%. Diastolic function could not be assessed. In addition the patient had moderate pulmonary hypertension. The patient admits that she has not compliant with her Entresto or her furosemide. I tried to reinforce the importance of consistency. This would also include daily weights. We will obtain daily weights, regular vital signs and monitor the patient on telemetry. We will track intake and output. We will resume Entresto and Aldactone as well as increase the furosemide dose. We will continue the metoprolol and digoxin as well. (2) Pleural effusion due to CHF (congestive heart failure) Is this a current diagnosis for this admission?: Yes Plan: 04/10/2020 We will monitor closely with aggressive diuresis. Consider thoracentesis if the effusions increase. (3) Leukocytosis Qualifiers: Leukocytosis type: unspecified Qualified Code(s): D72.829 - Elevated white blood cell count, unspecified Is this a current diagnosis for this admission?: Yes Plan: 04/10/2020 Likely due to the stress of her heart failure. Last year when she was admitted for heart failure she had an elevated white blood cell count as well. If this persists or if she develops fevers we will obtain multiple cultures and start antibiotic therapy. (4) Longstanding persistent atrial fibrillation Is this a current diagnosis for this admission?: Yes Plan: 04/10/2020 Monitor on telemetry. Continue metoprolol and digoxin. (5) Hypertension Qualifiers: Hypertension type: essential hypertension Qualified Code(s): I10 - Essential (primary) hypertension Is this a current diagnosis for this admission?: Yes Plan: 04/10/2020 Monitor vital signs. Especially in light of increased diuresis. (6) Orthopnea Is this a current diagnosis for this admission?: Yes Plan: 04/10/2020 Resulted bilateral pleural effusions. Will monitor closely. Consider thoracentesis if appropriate. (7) Edema, lower extremity Is this a current diagnosis for this admission?: Yes Plan: 04/10/2020 Secondary to heart failure. Increase diuresis (8) Hypothyroidism Qualifiers: Hypothyroidism type: unspecified Qualified Code(s): E03.9 - Hypothyroidism, unspecified Is this a current diagnosis for this admission?: Yes Plan: 04/10/2020 Continue levothyroxine - Time Time Spent with patient: 35 or more minutes Medications reviewed and adjusted accordingly: Yes Anticipated discharge: Home - Inpatient Certification Based on my medical assessment, after consideration of the patient's comorbidities, presenting symptoms, or acuity I expect that the services needed warrant INPATIENT care.: Yes I certify that my determination is in accordance with my understanding of Medicare's requirements for reasonable and necessary INPATIENT services [42 CFR 412.3e].: Yes Medical Necessity: Need Close Monitoring Due to Risk of Patient Decompensation, Need For Continuous Telemetry Monitoring, Risk of Complication if Not Cared For in Hospital Post Hospital Care: D/C Intensive Care Medicine Specialist Documentation
[2020-04-10] MEDS: DIGOXIN 0.125 MG TABLET PO SCH (09:49)
[2020-04-10] MEDS: ASPIRIN 81 MG TABLET, ENT COATED PO SCH (09:52)
[2020-04-10] MEDS: SPIRONOLACTONE 25 MG TABLET PO SCH (09:52)
[2020-04-10] MEDS: METOPROLOL TARTRATE 25 MG TABLET PO SCH ×2 (09:52→21:44)
[2020-04-10] MEDS: APIXABAN 5 MG TABLET PO SCH ×2 (09:53→17:43)
[2020-04-10] MEDS: SACUBITRIL/VALSARTAN 49 MG/51 MG TABLET PO SCH ×2 (11:30→21:45)
[2020-04-10] MEDS: NITROGLYCERIN 2% OINTMENT 1 GM PACKET TP SCH ×3 (11:30→23:57)
--- NOTE | 2020-04-10 23:14 | PDOC CONSULTATION ---
Consultation-Blank Consultation: CARDIOLOGY CONSULTATION by Dr. Valentina Hewitt on 04/10/2020. Patient seen at 2:30 PM. 60 minutes spent on the patient more than 50% of time spent in direct patient care. REASON FOR CONSULTATION: Patient with symptoms of congestive heart failure. CONSULT REQUESTING PHYSICIAN: Dr. Renteria, [facility] History OF PRESENT ILLNESS: Patient is a 84-year-old female, with known history of bovine aortic valve replacement, cardiomyopathy with severely reduced LV ejection fraction, history of AICD placement history of chronic atrial fibrillation, and COPD admitted with a history of o shortness of breath, increasing leg s,, welling PND orthopnea. She denies any chest pain she does have palpitations but no syncope. The patient was seen in the office last week in which she was stable. But since then the patient has been developing the symptoms of biventricular failure. It also seems that the patient is not taking medications as prescribed.. This did not bring the swelling down and hence the patient is admitted for increasing symptoms for inpatient treatment. She denies any chest pain or discomfort. There is no TIA or CVA. No bleeding on Eliquis. She denies any fever chills or Reiger's. Past Medical History Cardiac Medical History: Reports: Congestive Heart Failure, Hypertension. She has mild nonobstructive coronary artery disease. No history of ID. History of cardia myopathy with severely reduced LV ejection fraction. History of bovine aortic valve replacement. Past history of AICD placement which was removed. This was due to incessant shocks. History of hypertension and history of COPD present. There is no history of TIA CVA. There is no history of anxiety or depression. There is no history of diabetes mellitus or thyroid disease. PAST SURGICAL HISTORY: History of aortic valve replacement with a bovine valve. History of AICD placement and removal of AICD and leads due to AICD malfunction. Social History Smoking Status: Never Smoker but has had exposure to secondhand smoke - Advance Directive Resuscitation Status: Patient is a DNR. Her daughter is a surrogate healthcare decision maker. Family History Family History: Hypertension Medication/Allergy Home Medications: Metoprolol Tartrate [Lopressor 25 mg Tablet] 25 mg PO Q12 #60 tab 03/19/19 Allergies/Adverse Reactions: No Known Allergies Allergy (Verified 03/19/19 01:27) Review of Systems Constitutional: PRESENT: as per HPI, weight gain Eyes: ABSENT: visual disturbances Ears: ABSENT: hearing changes Cardiovascular: PRESENT: as per HPI, dyspnea on exertion, edema, orthropnea, palpitations. ABSENT: chest pain Respiratory: ABSENT: cough, hemoptysis Gastrointestinal: ABSENT: abdominal pain, constipation, diarrhea, hematemesis, hematochezia, nausea, vomiting Genitourinary: ABSENT: dysuria, hematuria Musculoskeletal: ABSENT: joint swelling Integumentary: ABSENT: rash, wounds Neurological: ABSENT: abnormal gait, abnormal speech, confusion, dizziness, focal weakness, syncope Psychiatric: ABSENT: anxiety, depression, homidical ideation, suicidal ideation Endocrine: ABSENT: cold intolerance, heat intolerance, polydipsia, polyuria Hematologic/Lymphatic: ABSENT: easy bleeding, easy bruising. Current Medications Generic Name Dose Route Start Last Admin Trade Name Freq PRN Reason Stop Dose Admin Acetaminophen 650 mg 04/10/20 09:13 Tylenol 325 Mg Tablet PO 05/10/20 09:12 Q4HP PRN pain or temp greater than 101F Al Hydrox/Mg Hydrox/Simethicone 30 ml 04/10/20 09:13 Maalox Plus Susp 30 Udcup PO 05/10/20 09:12 Q4HP PRN HEARTBURN Apixaban 5 mg 04/10/20 10:00 04/10/20 17:43 Eliquis 5 Mg Tablet PO 05/10/20 09:59 5 mg BID DANIEL Administration Aspirin 81 mg 04/10/20 10:00 04/10/20 09:52 Ecotrin 81 Mg Ec Tablet PO 05/10/20 09:59 81 mg DAILY DANIEL Administration Digoxin 0.125 mg 04/10/20 10:00 04/10/20 09:49 Lanoxin 0.125 Mg Tablet PO 05/10/20 09:59 Not Given DAILY DANIEL Furosemide 40 mg 04/11/20 10:00 Lasix Inj/Pf 40 Mg/4 Ml Sdv IV 05/11/20 09:59 DAILY DANIEL Levothyroxine Sodium 0.05 mg 04/11/20 06:00 Synthroid 0.05 Mg Tablet PO 05/11/20 05:59 Q6AM DANIEL Magnesium Hydroxide 30 ml 04/10/20 09:13 Milk Of Magnesia 30 Ml Udcup PO 05/10/20 09:12 HSP PRN FOR CONSTIPATION Metoprolol Tartrate 25 mg 04/10/20 10:00 04/10/20 21:44 Lopressor 25 Mg Tablet PO 05/10/20 09:59 25 mg Q12 DANIEL Administration Nitroglycerin 0.5 gm 04/10/20 12:00 04/10/20 17:44 Nitrol 2% Ointment 1gm Packet TP 05/10/20 11:59 0.5 gm Q6 DANIEL Administration Pantoprazole Sodium 20 mg 04/11/20 06:[address] Tablet PO 05/11/20 05:59 Q6AM DANIEL Sacubitril/Valsartan 1 tab 04/10/20 11:00 04/10/20 21:45 Entresto 49 Mg/51 Mg Tablet PO 05/10/20 10:59 1 tab Q12 DANIEL Administration Sodium Chloride 2.5 ml 04/10/20 14:00 04/10/20 21:47 Saline Flush 2.5 Ml Monoject Prefil Syrin IV 05/10/20 13:59 2.5 ml Q8 DANIEL Administration Spironolactone 12.5 mg 04/10/20 10:00 04/10/20 09:52 Aldactone 25 Mg Tablet PO 05/10/20 09:59 12.5 mg DAILY DANIEL Administration Discontinued Medications Generic Name Dose Route Start Last Admin Trade Name Freq PRN Reason Stop Dose Admin Aspirin 162 mg 04/10/20 05:14 04/10/20 05:42 Aspirin 81 Mg Chewable Tablet PO 04/10/20 05:15 162 mg NOW ONE Administration Digoxin 0.25 mg 04/10/20 07:22 04/10/20 07:38 Lanoxin Inj 0.5 Mg/2 Ml Ampule IV 04/10/20 07:23 0.25 mg NOW ONE Administration Furosemide 40 mg 04/10/20 05:14 04/10/20 05:41 Lasix Inj/Pf 40 Mg/4 Ml Sdv IV 04/10/20 05:15 40 mg NOW ONE Administration Nitroglycerin 0.5 gm 04/10/20 05:14 04/10/20 05:42 Nitrol 2% Ointment 1gm Packet TP 04/10/20 05:15 0.5 gm NOW ONE Administration PHYSICAL EXAMINATION: The patient is a frail build. She is well-groomed. At present in no acute distress at rest. Selected Entries 04/10/20 14:26 Temperature 97.4 F Temperature Oral Source Pulse Rate 76 Respiratory 20 Rate Blood Pressure 155/82 H Blood Pressure 106 Mean BP Location Right Arm BP Position Supine O2 Sat by Pulse 93 Oximetry Oxygen Delivery Room Air Method HEAD: Is atraumatic normocephalic. EYES: Pupils equal round regular reactive to light accommodation. Extraocular movements are normal. There is no ventricular pallor. There is no scleral icterus. EARS: Tympanic memories are intact. External auditory canals are clear. NOSE: There is no deviated nasal septum. There is no inflammation of the nasal mucous membrane. MOUTH: Mucous membranes of mouth are moist. Tongue is moist. There is no ulcers. THROAT: There is no redness of the oropharynx. There is no exudates. SKIN: There is no ecchymosis or petechiae. There is no skin lesions or skin rashes. NECK: Is supple. There is no JVD. Carotids are equal there is no bruit. There is transmitted aortic stenosis murmur heard over both carotids. There is no carotid delay. There is no lymphadenopathy. There is no goiter. There is no accessory muscles of respiration in use. Trachea central. LUNGS: Shows diminished air entry prolonged expiration. There is no rhonchi rales or wheezing. On percussion there is hyperresonance. HEART: S1-S2 is heard. S1 is of variable intensity. There is murmur of mild aortic stenosis/sclerosis. A2 is well preserved. There is no carotid delay. There is no thrill. There is murmur of tricuspid regurgitation mitral regurgitation present. There is no aortic regurgitation murmur heard. There is no S3 or S4 gallops. There is no rub. ABDOMEN: Is soft. There is no hepatospleno megaly. Bowel sounds well heard. There is no tender areas masses. EXTREMITIES: Femorals are well felt. There is no femoral bruits. Leg pulses well felt. There is mild pedal edema. There is no DVT or cellulitis. There is no cyanosis or clubbing. Capillary refill is normal. There is no calf tenderness. RETAIL PARTS PRO: The patient is conscious awake alert oriented x3 with no focal deficits. PSYCHIATRIC: Patient judgment and insight are intact her affect is normal. Labs- Entire Visit 04/10/20 04/10/20 04/10/20 05:24 05:24 05:24 WBC 21.3 H RBC 5.73 H Hgb 14.6 Hct 46.6 MCV 81 MCH 25.4 L MCHC 31.2 L RDW 15.9 H Plt Count 314 Lymph % (Auto) Not Reportable Edmunds % (Auto) Not Reportable Eos % (Auto) Not Reportable Baso % (Auto) Not Reportable Absolute Neuts (auto) Not Reportable Absolute Lymphs (auto) Not Reportable Absolute Monos (auto) Not Reportable Absolute Eos (auto) Not Reportable Absolute Basos (auto) Not Reportable Total Counted 100 Seg Neutrophils % Not Reportable Seg Neuts % (Manual) 41 L Lymphocytes % (Manual) 52 H Monocytes % (Manual) 7 Eosinophils % (Manual) 0 Basophils % (Manual) 0 Abs Neuts (Manual) 8.7 H Abs Lymphs (Manual) 11.1 H Abs Monocytes (Manual) 1.5 H Absolute Eos (Manual) 0.0 Abs Basophils (Manual) 0.0 Giant Platelets PRESENT Platelet Comment ADEQUATE Polychromasia SLIGHT Anisocytosis SLIGHT Ovalocytes SLIGHT Sodium 138.8 Potassium 4.2 Chloride 102 Carbon Dioxide 28 Anion Gap 9 BUN 23 H Creatinine 0.44 L Est GFR ( Amer) > 60 Est GFR (MDRD) Non-Af > 60 Glucose 327 H Calcium 9.8 Magnesium Total Bilirubin 1.9 H Direct Bilirubin 0.2 Neonat Total Bilirubin Not Reportable Neonat Direct Bilirubin Not Reportable Neonat Indirect Bili Not Reportable AST 28 ALT 20 Alkaline Phosphatase 99 Creatine Kinase 29 L CK-MB (CK-2) 1.25 Troponin I 0.012 NT-Pro-B Natriuret Pep 12941 H Total Protein 7.2 Albumin 4.4 Digoxin 0.63 L 04/10/20 04/10/20 05:24 08:10 WBC RBC Hgb Hct MCV MCH MCHC RDW Plt Count Lymph % (Auto) Edmunds % (Auto) Eos % (Auto) Baso % (Auto) Absolute Neuts (auto) Absolute Lymphs (auto) Absolute Monos (auto) Absolute Eos (auto) Absolute Basos (auto) Total Counted Seg Neutrophils % Seg Neuts % (Manual) Lymphocytes % (Manual) Monocytes % (Manual) Eosinophils % (Manual) Basophils % (Manual) Abs Neuts (Manual) Abs Lymphs (Manual) Abs Monocytes (Manual) Absolute Eos (Manual) Abs Basophils (Manual) Giant Platelets Platelet Comment Polychromasia Anisocytosis Ovalocytes Sodium Potassium Chloride Carbon Dioxide Anion Gap BUN Creatinine Est GFR ( Amer) Est GFR (MDRD) Non-Af Glucose Calcium Magnesium 1.9 Total Bilirubin Direct Bilirubin Neonat Total Bilirubin Neonat Direct Bilirubin Neonat Indirect Bili AST ALT Alkaline Phosphatase Creatine Kinase CK-MB (CK-2) Troponin I 0.013 NT-Pro-B Natriuret Pep Total Protein Albumin Digoxin Chest X-Ray 04/10/20 04:46 IMPRESSION: 1. Small bilateral pleural effusions with partial lower lobe atelectasis, likely CHF 2. Previous sternotomy. Cardiomegaly, as on prior exam. Impression/RECOMMENDATION: 1. 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 With IV Lasix. Continue Entresto and stop the patient's metoprolol and switch to Toprol-XL. The patient has been given congestive heart failure teaching. 2. Dilated cardiomyopathy with severely reduced LV ejection fraction. Echo of 2019 admission showef LV ejection fraction 20% the patient is tolerating increased dose of Entresto. Will go with Toprol-XL at present. .3. History of bovine aortic valve replacement: Echo shows no significant re- stenosis. There is no aortic regurgitation. Patient and daughter aware of need for SBE prophylaxis with antibiotics prior to dental GI/ surgery/procedures. 4. COPD: no evidence of acute exacerbation. Stable and at baseline. 5. Hypertension: Blood pressure well controlled. 6. Diabetes mellitus type 2: Continue antidiabetic treatment and Accu-Cheks as per protocol. 7. Hypothyroidism: Continue thyroid replacement 8. GERD: Symptoms controlled at present. 9. Arthritis: At present no evidence of any acute inflammation. 10. Chronic atrial fibrillation. At present heart rate is controlled. Continue Toprol-XL. Continue Eliquis. Medications reviewed management plan discussed with attending physician. Medical decision making is of high complexity. 60 minutes spent on this patient with more than 50% of time spent in direct patient care. Will follow
[2020-04-10] MEDS ORDERED: METOPROLOL SUCCINATE 25 MG TAB.SR.24H PO ONE (23:45)
[2020-04-11 05:45] LABS: HEMATOCRIT 45.1 % (36.0-47.0); HEMOGLOBIN 14.3 g/dL (12.0-15.5); MEAN CORPUSCULAR HEMOGLOBIN 25.5 pg (27.0-33.4); MEAN CORPUSCULAR HGB CONC 31.8 g/dL (32.0-36.0); MEAN CORPUSCULAR VOLUME 80 fl (80-97); PLATELET COUNT 243 10^3/uL (150-450); RED BLOOD COUNT 5.62 10^6/uL (3.72-5.28); RED CELL DISTRIBUTION WIDTH 15.4 % (11.5-14.0)
[2020-04-11] MEDS: PANTOPRAZOLE SODIUM 20 MG TABLET.DR PO SCH (05:46)
[2020-04-11] MEDS: LEVOTHYROXINE SODIUM 0.05 MG TABLET PO SCH (05:46)
[2020-04-11] MEDS: NITROGLYCERIN 2% OINTMENT 1 GM PACKET TP SCH ×4 (05:49→23:46)
[2020-04-11 05:58] LABS: DIGOXIN 0.7 ng/mL (0.8-2.0)
[2020-04-11 06:38] LABS: SMUDGE CELLS PRESENT
[2020-04-11 06:50] LABS: ABSOLUTE LYMPHOCYTES# (MANUAL) 10.3 10^3/uL (0.5-4.7); ABSOLUTE MONOCYTES # (MANUAL) 0.4 10^3/uL (0.1-1.4); BASOPHILS % (MANUAL) 0 % (0-2); EOSINOPHILS % (MANUAL) 0 % (0-6); LYMPHOCYTES % (MANUAL) 57 % (13-45); MONOCYTES % (MANUAL) 2 % (3-13); SEGMENTED NEUTROPHILS % (MAN) 41 % (42-78); TOTAL CELLS COUNTED 100
[2020-04-11 06:51] LABS: ANISOCYTOSIS SLIGHT; PLATELET COMMENT ADEQUATE; SMUDGE CELLS PRESENT
[2020-04-11] MEDS: SACUBITRIL/VALSARTAN 49 MG/51 MG TABLET PO SCH (09:19)
[2020-04-11] MEDS: ASPIRIN 81 MG TABLET, ENT COATED PO SCH (09:19)
[2020-04-11] MEDS: FUROSEMIDE INJ/PF 40 MG/4 ML SDV IV SCH ×2 (09:20→21:22)
[2020-04-11] MEDS: METOPROLOL SUCCINATE 25 MG TAB.SR.24H PO SCH ×2 (09:20→21:22)
[2020-04-11] MEDS: APIXABAN 5 MG TABLET PO SCH ×2 (09:20→17:08)
[2020-04-11] MEDS: SPIRONOLACTONE 25 MG TABLET PO SCH (09:20)
[2020-04-11] MEDS: DIGOXIN 0.125 MG TABLET PO SCH (09:21)
[2020-04-11] MEDS ORDERED: FUROSEMIDE INJ/PF 40 MG/4 ML SDV IV SCH (10:00)
--- NOTE | 2020-04-11 11:11 | PDOC PROGRESS REPORT ---
Subjective Progress Note for:: 04/11/20 Subjective:: Definitely feeling much better but white blood cell count is still 18,000. Discussed discharge and agreed 1 more night. Reason For Visit: HEART FAILURE/A FIB Physical Exam Vital Signs: Temp Pulse Resp BP Pulse Ox 97.8 F 91 20 154/78 H 96 04/11/20 08:00 04/11/20 08:00 04/11/20 08:00 04/11/20 08:00 04/11/20 08:00 Intake & Output 04/10/20 04/11/20 04/12/20 06:59 06:59 06:59 Intake Total 120 240 Output Total 250 Balance 120 -10 Weight 68.039 kg 71.4 kg General appearance: PRESENT: no acute distress, cooperative, well-developed Head exam: PRESENT: atraumatic, normocephalic Eye exam: PRESENT: conjunctiva pink. ABSENT: scleral icterus Ear exam: PRESENT: normal external ear exam. ABSENT: bleeding, drainage Mouth exam: PRESENT: moist, tongue midline Respiratory exam: PRESENT: clear to auscultation prachi - Upper lung yusuf, decreased breath sounds - At the bases Cardiovascular exam: PRESENT: irregular rhythm, +S1 - intermittant, +S2. ABSENT: diastolic murmur, systolic murmur GI/Abdominal exam: PRESENT: normal bowel sounds, soft. ABSENT: distended, guarding, tenderness Rectal exam: PRESENT: deferred Gentrourinary exam: ABSENT: indwelling catheter Extremities exam: ABSENT: joint swelling, pedal edema Musculoskeletal exam: PRESENT: ambulatory, normal inspection. ABSENT: deformity Neurological exam: PRESENT: alert, awake, oriented to person, oriented to place, oriented to time, oriented to situation, CN II-XII grossly intact. ABSENT: altered, motor sensory deficit Psychiatric exam: PRESENT: appropriate affect, normal mood. ABSENT: agitated, anxious Focused psych exam: ABSENT: delusional, paranoid, restlessness Skin exam: PRESENT: dry, warm. ABSENT: rash Results Laboratory Results: 04/11/20 05:21 04/10/20 05:24 04/11/20 04/11/20 05:21 05:21 WBC 18.0 H RBC 5.62 H Hgb 14.3 Hct 45.1 MCV 80 MCH 25.5 L MCHC 31.8 L RDW 15.4 H Plt Count 243 Seg Neutrophils % Not Reportable Magnesium 1.8 06/23/20 06/23/20 06/23/20 05:24 05:24 08:10 Creatine Kinase 29 L CK-MB (CK-2) 1.25 Troponin I 0.012 0.013 NT-Pro-B Natriuret Pep 14472 H Impressions: Chest X-Ray 04/10/20 04:46 IMPRESSION: 1. Small bilateral pleural effusions with partial lower lobe atelectasis, likely CHF 2. Previous sternotomy. Cardiomegaly, as on prior exam. Assessment and Plan - Diagnosis (1) Acute on chronic systolic (congestive) heart failure Is this a current diagnosis for this admission?: Yes Plan: 04/10/[address] Hewitt. I will obtain consult. May 2019 echocardiogram revealed EF of only 20%. Diastolic function could not be assessed. In addition the patient had moderate pulmonary hypertension. The patient admits that she has not compliant with her Entresto or her furosemide. I tried to reinforce the importance of consistency. This would also include daily weights. We will obtain daily weights, regular vital signs and monitor the patient on telemetry. We will track intake and output. We will resume Entresto and Aldactone as well as increase the furosemide dose. We will continue the metoprolol and digoxin as well. 04/11/2020 Patient is feeling better. I will keep her furosemide at 40 mg IV every 12 for today. Plan to recheck electrolytes in the morning. (2) Pleural effusion due to CHF (congestive heart failure) Is this a current diagnosis for this admission?: Yes Plan: 04/10/2020 We will monitor closely with aggressive diuresis. Consider thoracentesis if the effusions increase. 04/11/2020 Clinically stable. Continue diuresis. (3) Leukocytosis Qualifiers: Leukocytosis type: unspecified Qualified Code(s): D72.829 - Elevated white blood cell count, unspecified Is this a current diagnosis for this admission?: Yes Plan: 04/10/2020 Likely due to the stress of her heart failure. Last year when she was admitted for heart failure she had an elevated white blood cell count as well. If this persists or if she develops fevers we will obtain multiple cultures and start antibiotic therapy. 04/11/2020 Slightly better today. I still do not believe infection is present but we will monitor closely. If her white blood cell count is lower again tomorrow she can be discharged to home. (4) Longstanding persistent atrial fibrillation Is this a current diagnosis for this admission?: Yes Plan: 04/10/2020 Monitor on telemetry. Continue metoprolol and digoxin. 04/11/2020 We will resume bisoprolol at discharge. Cardiology continues to follow. (5) Hypertension Qualifiers: Hypertension type: essential hypertension Qualified Code(s): I10 - Essential (primary) hypertension Is this a current diagnosis for this admission?: Yes Plan: 04/10/2020 Monitor vital signs. Especially in light of increased diuresis. 04/11/2020 Blood pressures stable despite increased diuresis. Continue to monitor. (6) Orthopnea Is this a current diagnosis for this admission?: Yes Plan: 04/10/2020 Resulted bilateral pleural effusions. Will monitor closely. Consider thoracentesis if appropriate. 04/11/2020 Orthopnea secondary to the bilateral effusions as noted above. Patient is stable and feeling better. Will avoid invasive procedures if possible. (7) Edema, lower extremity Is this a current diagnosis for this admission?: Yes Plan: 04/10/2020 Secondary to heart failure. Increase diuresis 04/11/2020 No edema in her legs today. We will continue to monitor. (8) Hypothyroidism Qualifiers: Hypothyroidism type: unspecified Qualified Code(s): E03.9 - Hypothyroidism, unspecified Is this a current diagnosis for this admission?: Yes Plan: 04/10/2020 Continue levothyroxine - Time Time Spent with patient: 15-24 minutes Medications reviewed and adjusted accordingly: Yes Anticipated discharge: Home Within: within 48 hours
--- NOTE | 2020-04-11 11:38 | Progress Note ---
Provider Note Provider Note: CARDIOLOGY PROGRESS NOTE by Dr. Valentina Hewitt on 04/11/2020. SUBJECTIVE: The patient states she feels stronger and was able to sit up in the chair with. She has chronic orthopnea but no PND. Her leg edema is only trace at present. There is no ventricular arrhythmias seen on the monitor. The patient continues to be in atrial fibrillation controlled ventricular spots. There is no firing of her AICD. The patient intake output is not accurate. But the patient states she is passing a lot of urine. PHYSICAL EXAMINATION: The patient is well-built. In no acute distress. Selected Entries 04/11/20 08:00 Temperature 97.8 F Temperature Oral Source Pulse Rate 91 Respiratory 20 Rate Blood Pressure 154/78 H [Left] Blood Pressure 103 Mean [Left] Blood Pressure Sitting Position [Left] O2 Sat by Pulse 96 Oximetry Oxygen Delivery Room Air Method ( includes room air) HEAD: Is atraumatic normocephalic. EYES: Pupils equal round regular reactive to light accommodation. Extraocular movements are normal. There is no ventricular pallor. There is no scleral icterus. EARS: Tympanic memories are intact. External auditory canals are clear. NOSE: There is no deviated nasal septum. There is no inflammation of the nasal mucous membrane. MOUTH: Mucous membranes of mouth are moist. Tongue is moist. There is no ulcers. THROAT: There is no redness of the oropharynx. There is no exudates. SKIN: There is no ecchymosis or petechiae. There is no skin lesions or skin rashes. NECK: Is supple. There is no JVD. Carotids are equal there is no bruit. There is transmitted aortic stenosis murmur heard over both carotids. There is no carotid delay. There is no lymphadenopathy. There is no goiter. There is no accessory muscles of respiration in use. Trachea central. LUNGS: Shows diminished air entry prolonged expiration. There is no rhonchi rales or wheezing. On percussion there is hyperresonance. HEART: S1-S2 is heard. S1 is of variable intensity. There is murmur of mild aortic stenosis/sclerosis. A2 is well preserved. There is no carotid delay. There is no thrill. There is murmur of tricuspid regurgitation mitral regurgitation present. There is no aortic regurgitation murmur heard. There is no S3 or S4 gallops. There is no rub. ABDOMEN: Is soft. There is no hepatospleno megaly. Bowel sounds well heard. There is no tender areas masses. EXTREMITIES: Femorals are well felt. There is no femoral bruits. Leg pulses well felt. There is only trace pedal edema. There is no DVT or cellulitis. There is no cyanosis or clubbing. Capillary refill is normal. There is no calf tenderness. PROBATION AND PATROL AGENT: The patient is conscious awake alert oriented x3 with no focal deficits. PSYCHIATRIC: Patient judgment and insight are intact her affect is normal. Impression/RECOMMENDATION: 1. 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 With IV Lasix. Will increase the dose of Entresto and continue Toprol-XL. The patient has been given congestive heart failure teaching. We will recheck chest x-ray tomorrow morning. 2. Dilated cardiomyopathy with severely reduced LV ejection fraction. Echo of 2019 admission showef LV ejection fraction 20% the patient is tolerating increased dose of Entresto. Will go with Toprol-XL at present. .3. History of bovine aortic valve replacement: Echo shows no significant re- stenosis. There is no aortic regurgitation. Patient and daughter aware of need for SBE prophylaxis with antibiotics prior to dental GI/ surgery/procedures. 4. COPD: no evidence of acute exacerbation. Stable and at baseline. 5. Hypertension: Blood pressure well controlled. 6. Diabetes mellitus type 2: Continue antidiabetic treatment and Accu-Cheks as per protocol. 7. S/p AICD placement: No firing of AICD 8. Hypothyroidism: Continue thyroid replacement 9. GERD: Symptoms controlled at present. 10. Arthritis: At present no evidence of any acute inflammation. 11. Chronic atrial fibrillation. At present heart rate is controlled. Continue Toprol-XL. Continue Eliquis. Medications reviewed. Medications adjusted. Medical decision making hence is of high complexity. Medical regimen management plan discussed with referring provider on the case. 40 minutes spent with patient with more than 50% time spent in direct patient care. Will follow.
--- NOTE | 2020-04-11 13:12 | EKG REPORT ---
SEVERITY:- ABNORMAL ECG - ATRIAL FIBRILLATION, V-RATE 75-[address] DEPRESSION, CONSIDER ISCHEMIA, INF LEADS : Confirmed by: Los Owens 11-Apr-2020 13:11:31
--- NOTE | 2020-04-11 13:12 | EKG REPORT ---
SEVERITY:- ABNORMAL ECG - ATRIAL FIBRILLATION, V-RATE 73-101 MULTIPLE PREMATURE COMPLEXES, VENT RBBB AND LPFB ST DEPRESSION, CONSIDER ISCHEMIA, DIFFUSE LDS : Confirmed by: Los Owens 11-Apr-2020 13:11:55
[2020-04-11 14:49] LABS: PATH REVIEW PATHOLOGIST REVIEWED
[2020-04-11] MEDS: SACUBITRIL/VALSARTAN 97 MG/103 MG TABLET PO SCH (21:22)
[2020-04-12] MEDS: NITROGLYCERIN 2% OINTMENT 1 GM PACKET TP SCH (05:36)
[2020-04-12] MEDS: LEVOTHYROXINE SODIUM 0.05 MG TABLET PO SCH (05:37)
[2020-04-12] MEDS: PANTOPRAZOLE SODIUM 20 MG TABLET.DR PO SCH (05:37)
[2020-04-12 06:27] LABS: HEMOGLOBIN 15.4 g/dL (12.0-15.5); MEAN CORPUSCULAR HEMOGLOBIN 25.7 pg (27.0-33.4); MEAN CORPUSCULAR VOLUME 80 fl (80-97); PLATELET COUNT 248 10^3/uL (150-450); RED BLOOD COUNT 5.99 10^6/uL (3.72-5.28); RED CELL DISTRIBUTION WIDTH 15.9 % (11.5-14.0); WHITE BLOOD COUNT 17.6 10^3/uL (4.0-10.5)
[2020-04-12 06:37] LABS: ANION GAP 8 (5-19); BLOOD UREA NITROGEN 19 mg/dL (7-20); CALCIUM 9.5 mg/dL (8.4-10.2); CARBON DIOXIDE 32 mmol/L (22-30); CHLORIDE 97 mmol/L (98-107); GLUCOSE 312 mg/dL (75-110); POTASSIUM 3.6 mmol/L (3.6-5.0)
[2020-04-12 07:21] LABS: ABSOLUTE LYMPHOCYTES# (MANUAL) 10.4 10^3/uL (0.5-4.7); ABSOLUTE MONOCYTES # (MANUAL) 1.4 10^3/uL (0.1-1.4); BASOPHILS % (MANUAL) 0 % (0-2); EOSINOPHILS % (MANUAL) 0 % (0-6); LYMPHOCYTES % (MANUAL) 59 % (13-45); MONOCYTES % (MANUAL) 8 % (3-13); SEGMENTED NEUTROPHILS % (MAN) 33 % (42-78); TOTAL CELLS COUNTED 100
[2020-04-12 07:22] LABS: ANISOCYTOSIS SLIGHT; PLATELET COMMENT ADEQUATE; SMUDGE CELLS PRESENT; TEAR DROP CELLS SLIGHT
--- NOTE | 2020-04-12 09:09 | PDOC DISCHARGE SUMMARY ---
Impression - Admit/DC Date/PCP Admission Date/Primary Care Provider: 04/10/20 08:09 EDI BECKWITH MD Discharge Date: 04/12/20 - Discharge Diagnosis (1) Acute on chronic systolic (congestive) heart failure Is this a current diagnosis for this admission?: Yes (2) Pleural effusion due to CHF (congestive heart failure) Is this a current diagnosis for this admission?: Yes (3) Leukocytosis Is this a current diagnosis for this admission?: Yes (4) Longstanding persistent atrial fibrillation Is this a current diagnosis for this admission?: Yes (5) Hypertension Is this a current diagnosis for this admission?: Yes (6) Orthopnea Is this a current diagnosis for this admission?: Yes (7) Edema, lower extremity Is this a current diagnosis for this admission?: Yes (8) Hypothyroidism Is this a current diagnosis for this admission?: Yes - Additional Information Resuscitation Status: Do Not Resuscitate Discharge Diet: Cardiac Discharge Activity: Activity As Tolerated, Balance Activity w/Rest, Weigh Daily Referrals: EDI BECKWITH MD [Primary Care Provider] - 04/16/20 12:30 pm Prescriptions: Spironolactone [Aldactone 25 mg Tablet] 25 mg PO DAILY #30 tablet Sacubitril/Valsartan [Entresto 97 mg/103 mg Tablet] 1 tab PO Q12 #30 tablet Furosemide [Lasix 40 mg Tablet] 40 mg PO QAM #30 tablet Nitroglycerin [Nitro-Dur 10 mg (0.4MG/Hr) Transdermal Patch] 1 patch TD QAM #30 patch.td24 Home Medications: Apixaban [Eliquis 5 mg Tablet] 5 mg PO BID 06/16/19 Aspirin [Ecotrin 81 mg EC Tablet] 81 mg PO DAILY 06/16/19 Bisoprolol Fumarate [Zebeta 5 mg Tablet] 5 mg PO BID 06/16/19 Digoxin [Lanoxin 0.125 mg Tablet] 0.125 mg PO DAILY 06/16/19 Levothyroxine Sodium [Synthroid 0.05 mg Tablet] 0.05 mg PO DAILY 06/16/19 Spironolactone [Aldactone 25 mg Tablet] 12.5 mg PO DAILY 06/16/19 Apixaban [Eliquis 5 mg Tablet] 5 mg PO BID tablet 04/12/20 Aspirin [Ecotrin 81 mg EC Tablet] 81 mg PO DAILY tabec 04/12/20 Digoxin [Lanoxin 0.125 mg Tablet] 0.125 mg PO DAILY tablet 04/12/20 Furosemide [Lasix 40 mg Tablet] 40 mg PO QAM #30 tablet 04/12/20 Levothyroxine Sodium [Synthroid 0.05 mg Tablet] 0.05 mg PO Q6AM tablet 04/12/20 Nitroglycerin [Nitro-Dur 10 mg (0.4MG/Hr) Transdermal Patch] 1 patch TD QAM #30 patch.td24 04/12/20 Sacubitril/Valsartan [Entresto 97 mg/103 mg Tablet] 1 tab PO Q12 #30 tablet 04/12/20 Spironolactone [Aldactone 25 mg Tablet] 25 mg PO DAILY #30 tablet 04/12/20 History of Present Illiness History of Present Illness: RUBEN MORRIS is a 84 year old female with history of severe CHF Hospital Course Hospital Course: (1) Acute on chronic systolic (congestive) heart failure Is this a current diagnosis for this admission?: Yes Plan: 04/10/[address] Beckwith. I will obtain consult. May 2019 echocardiogram revealed EF of only 20%. Diastolic function could not be assessed. In addition the patient had moderate pulmonary hypertension. The patient admits that she has not compliant with her Entresto or her furosemide. I tried to reinforce the importance of consistency. This would also include daily weights. We will obtain daily weights, regular vital signs and monitor the patient on telemetry. We will track intake and output. We will resume Entresto and Aldactone as well as increase the furosemide dose. We will continue the metoprolol and digoxin as well. 04/11/2020 Patient is feeling better. I will keep her furosemide at 40 mg IV every 12 for today. Plan to recheck electrolytes in the morning. (2) Pleural effusion due to CHF (congestive heart failure) Is this a current diagnosis for this admission?: Yes Plan: 04/10/2020 We will monitor closely with aggressive diuresis. Consider thoracentesis if the effusions increase. 04/11/2020 Clinically stable. Continue diuresis. (3) Leukocytosis Qualifiers: Leukocytosis type: unspecified Qualified Code(s): D72.829 - Elevated white blood cell count, unspecified Is this a current diagnosis for this admission?: Yes Plan: 04/10/2020 Likely due to the stress of her heart failure. Last year when she was admitted for heart failure she had an elevated white blood cell count as well. If this persists or if she develops fevers we will obtain multiple cultures and start antibiotic therapy. 04/11/2020 Slightly better today. I still do not believe infection is present but we will monitor closely. If her white blood cell count is lower again tomorrow she can be discharged to home. (4) Longstanding persistent atrial fibrillation Is this a current diagnosis for this admission?: Yes Plan: 04/10/2020 Monitor on telemetry. Continue metoprolol and digoxin. 04/11/2020 We will resume bisoprolol at discharge. Cardiology continues to follow. (5) Hypertension Qualifiers: Hypertension type: essential hypertension Qualified Code(s): I10 - Essential (primary) hypertension Is this a current diagnosis for this admission?: Yes Plan: 04/10/2020 Monitor vital signs. Especially in light of increased diuresis. 04/11/2020 Blood pressures stable despite increased diuresis. Continue to monitor. (6) Orthopnea Is this a current diagnosis for this admission?: Yes Plan: 04/10/2020 Resulted bilateral pleural effusions. Will monitor closely. Consider thoracentesis if appropriate. 04/11/2020 Orthopnea secondary to the bilateral effusions as noted above. Patient is stable and feeling better. Will avoid invasive procedures if possible. (7) Edema, lower extremity Is this a current diagnosis for this admission?: Yes Plan: 04/10/2020 Secondary to heart failure. Increase diuresis 04/11/2020 No edema in her legs today. We will continue to monitor. (8) Hypothyroidism Qualifiers: Hypothyroidism type: unspecified Qualified Code(s): E03.9 - Hypothyroidism, unspecified Is this a current diagnosis for this admission?: Yes Plan: 04/10/2020 Continue levothyroxine Physical Exam Vital Signs: Temp Pulse Resp BP Pulse Ox 97.7 F 96 17 154/78 H 95 04/12/20 08:49 04/12/20 08:49 04/12/20 08:49 04/12/20 08:49 04/12/20 08:49 Intake & Output 04/11/20 04/12/20 04/13/20 06:59 06:59 06:59 Intake Total 120 1191 Output Total 2450 Balance 120 -1259 Weight 71.4 kg 71.4 kg General appearance: PRESENT: no acute distress Ear exam: PRESENT: normal external ear exam. ABSENT: bleeding, drainage Respiratory exam: PRESENT: decreased breath sounds - At bases, rales, symmetrical, unlabored. ABSENT: rhonchi, tachypnea, wheezes Cardiovascular exam: PRESENT: RRR, +S1, +S2, tachycardia GI/Abdominal exam: PRESENT: normal bowel sounds, soft. ABSENT: tenderness Neurological exam: PRESENT: alert, awake, oriented to person, oriented to place, oriented to time, oriented to situation, CN II-XII grossly intact Psychiatric exam: PRESENT: appropriate affect. ABSENT: agitated, anxious Results Laboratory Results: WBC 17.6 10^3/uL (4.0-10.5) H 04/12/20 05:56 RBC 5.99 10^6/uL (3.72-5.28) H 04/12/20 05:56 Hgb 15.4 g/dL (12.0-15.5) 04/12/20 05:56 Hct 48.0 % (36.0-47.0) H 04/12/20 05:56 MCV 80 fl (80-97) 04/12/20 05:56 MCH 25.7 pg (27.0-33.4) L 04/12/20 05:56 MCHC 32.0 g/dL (32.0-36.0) 04/12/20 05:56 RDW 15.9 % (11.5-14.0) H 04/12/20 05:56 Plt Count 248 10^3/uL (150-450) 04/12/20 05:56 Lymph % (Auto) Not Reportable 04/12/20 05:56 [place] % (Auto) Not Reportable 04/12/20 05:56 Eos % (Auto) Not Reportable 04/12/20 05:56 Baso % (Auto) Not Reportable 04/12/20 05:56 Absolute Neuts (auto) Not Reportable 04/12/20 05:56 Absolute Lymphs (auto) Not Reportable 04/12/20 05:56 Absolute Monos (auto) Not Reportable 04/12/20 05:56 Absolute Eos (auto) Not Reportable 04/12/20 05:56 Absolute Basos (auto) Not Reportable 04/12/20 05:56 Total Counted 100 04/12/20 05:56 Seg Neutrophils % Not Reportable 04/12/20 05:56 Seg Neuts % (Manual) 33 % (42-78) L 04/12/20 05:56 Lymphocytes % (Manual) 59 % (13-45) H 04/12/20 05:56 Monocytes % (Manual) 8 % (3-13) 04/12/20 05:56 Eosinophils % (Manual) 0 % (0-6) 04/12/20 05:56 Basophils % (Manual) 0 % (0-2) 04/12/20 05:56 Abs Neuts (Manual) 5.8 10^3/uL (1.7-8.2) 04/12/20 05:56 Abs Lymphs (Manual) 10.4 10^3/uL (0.5-4.7) H 04/12/20 05:56 Abs Monocytes (Manual) 1.4 10^3/uL (0.1-1.4) 04/12/20 05:56 Absolute Eos (Manual) 0.0 10^3/uL (0.0-0.6) 04/12/20 05:56 Abs Basophils (Manual) 0.0 10^3/uL (0.0-0.2) 04/12/20 05:56 Smudge Cells PRESENT 04/12/20 05:56 Giant Platelets PRESENT 04/10/20 05:24 Platelet Comment ADEQUATE 04/12/20 05:56 Polychromasia SLIGHT 04/10/20 05:24 Anisocytosis SLIGHT 04/12/20 05:56 Tear Drop Cells SLIGHT 04/12/20 05:56 Ovalocytes SLIGHT 04/10/20 05:24 Sodium 137.4 mmol/L (137-145) 04/12/20 05:56 Potassium 3.6 mmol/L (3.6-5.0) 04/12/20 05:56 Chloride 97 mmol/L (98-107) L 04/12/20 05:56 Carbon Dioxide 32 mmol/L (22-30) H 04/12/20 05:56 Anion Gap 8 (5-19) 04/12/20 05:56 BUN 19 mg/dL (7-20) 04/12/20 05:56 Creatinine 0.49 mg/dL (0.52-1.25) L 04/12/20 05:56 Est GFR ( Amer) > 60 (>60) 04/12/20 05:56 Est GFR (MDRD) Non-Af > 60 (>60) 04/12/20 05:56 Glucose 312 mg/dL (75-110) H 04/12/20 05:56 Calcium 9.5 mg/dL (8.4-10.2) 04/12/20 05:56 Magnesium 1.7 mg/dL (1.6-2.3) 04/12/20 05:56 Total Bilirubin 1.9 mg/dL (0.2-1.3) H 04/10/20 05:24 Direct Bilirubin 0.2 mg/dL (0.0-0.4) 04/10/20 05:24 Neonat Total Bilirubin Not Reportable 04/10/20 05:24 Neonat Direct Bilirubin Not Reportable 04/10/20 05:24 Neonat Indirect Bili Not Reportable 04/10/20 05:24 AST 28 U/L (14-36) 04/10/20 05:24 ALT 20 U/L (<35) 04/10/20 05:24 Alkaline Phosphatase 99 U/L (38-126) 04/10/20 05:24 Creatine Kinase 29 U/L (30-135) L 04/10/20 05:24 CK-MB (CK-2) 1.25 ng/mL (<4.55) 04/10/20 05:24 Troponin I 0.013 ng/mL 04/10/20 08:10 NT-Pro-B Natriuret Pep 09069 pg/mL (<450) H 04/10/20 05:24 Total Protein 7.2 g/dL (6.3-8.2) 04/10/20 05:24 Albumin 4.4 g/dL (3.5-5.0) 04/10/20 05:24 Digoxin 0.70 ng/mL (0.8-2.0) L 04/11/20 05:21 Slides for Path Review PATHOLOGIST REVIEWED 04/11/20 05:21 04/10/20 04/10/20 05:24 08:10 CK-MB (CK-2) 1.25 Troponin I 0.012 0.013 NT-Pro-B Natriuret Pep 33106 H Impressions: Chest X-Ray 04/10/20 04:46 IMPRESSION: 1. Small bilateral pleural effusions with partial lower lobe atelectasis, likely CHF 2. Previous sternotomy. Cardiomegaly, as on prior exam. Plan Health Concerns: Severely reduced ejection fraction with recurrent acute episodes of heart failure and patient's tendency towards noncompliance. Plan of Treatment: Continue slightly increased dose of diuretic therapy at discharge and follow-up with Dr. Beckwith. The patient's Entresto was also increased. She needs to be compliant with these medications. Goals: Better control of heart failure/cardiac status. Time Spent: Greater than 30 Minutes Stroke Is this a Stroke Patient?: No Acute Heart Failure - Is this a Heart Failure Patient?: Yes Documentation of LVEF assessment?: Yes LVEF: LVEF Less Than or Equal to 35% Anticoagulant Therapy: Yes Discharged on Evidence-Based Beta Blockers: Yes Discharged on ARNI?: Yes For LVEF <35%, discharged on Aldosterone Antagonist?: Yes Follow-up Appointment scheduled within 7 days?: Yes
--- NOTE | 2020-04-12 09:33 | RADIOLOGY REPORT (SQ) ---
EXAM DESCRIPTION: CHEST SINGLE VIEW IMAGES COMPLETED DATE/TIME: 04/12/2020 8:55 am REASON FOR STUDY: CHF COMPARISON: 04/10/2020 EXAM PARAMETERS: NUMBER OF VIEWS: One view. TECHNIQUE: Single frontal radiographic view of the chest acquired. RADIATION DOSE: NA LIMITATIONS: None. FINDINGS: LUNGS AND PLEURA: Improved aeration of the lungs on today's examination. Persistent bilat eral pleural effusions. No pneumothorax. MEDIASTINUM AND HILAR STRUCTURES: No masses. Contour normal. HEART AND VASCULAR STRUCTURES: Cardiomegaly. The central vasculature appears normal. BONES: No acute findings. HARDWARE: Midline surgical changes. OTHER: No other significant finding. IMPRESSION: Improved pulmonary aeration demonstrating persistent bilateral pleural effusions. No ev idence of adverse trend. TECHNICAL DOCUMENTATION: JOB ID: [id number] [employer]- All Rights Reserved Reading location - IP/workstation name: [email or web address]
[2020-04-12] MEDS: DIGOXIN 0.125 MG TABLET PO SCH (09:48)
[2020-04-12] MEDS: SACUBITRIL/VALSARTAN 97 MG/103 MG TABLET PO SCH (09:53)
[2020-04-12] MEDS: METOPROLOL SUCCINATE 25 MG TAB.SR.24H PO SCH (09:53)
[2020-04-12] MEDS: ASPIRIN 81 MG TABLET, ENT COATED PO SCH (09:54)
[2020-04-12] MEDS: APIXABAN 5 MG TABLET PO SCH (09:54)
[2020-04-12] MEDS: FUROSEMIDE INJ/PF 40 MG/4 ML SDV IV SCH (09:54)
[2020-04-12] MEDS ORDERED: SPIRONOLACTONE 25 MG TABLET PO SCH (10:00)
[2020-04-12] MEDS ORDERED: DIGOXIN 0.25 MG TABLET PO ONE (10:30)
[2020-04-12] MEDS ORDERED: DIGOXIN INJ 0.5 MG/2 ML AMPULE IV ONE (11:15)
[2020-04-12 13:38] VITALS: BP 141/79
== END 2020-04-12 14:55 | disposition home or self-care (01) | DRG 292 ==
LOC: ER 04:17 → EH 08:09 → 4S 14:09
PROVIDERS: ADMIT Hospitalist; ATTEND Hospitalist
DX: I11.0 Hypertensive heart disease with heart failure (principal); I48.11 Longstanding persistent atrial fibrillation; I50.23 Acute on chronic systolic (congestive) heart failure; I25.10 Atherosclerotic heart disease of native coronary artery without angina pectoris; E03.9 Hypothyroidism, unspecified; M19.90 Unspecified osteoarthritis, unspecified site; Z66 Do not resuscitate; D72.829 Elevated white blood cell count, unspecified; I42.0 Dilated cardiomyopathy; J44.9 Chronic obstructive pulmonary disease, unspecified; E11.9 Type 2 diabetes mellitus without complications; K21.9 Gastro-esophageal reflux disease without esophagitis; Z79.890 Hormone replacement therapy; Z82.49 Family history of ischemic heart disease and other diseases of the circulatory system; Z83.3 Family history of diabetes mellitus; Z95.2 Presence of prosthetic heart valve; Z79.82 Long term (current) use of aspirin; Z79.01 Long term (current) use of anticoagulants; Z79.899 Other long term (current) drug therapy; Z95.810 Presence of automatic (implantable) cardiac defibrillator
CPT/HCPCS: 36415; 71045; 80048; 80053; 80162; 82550; 82553; 83735; 83880; 84484; 85025; 93005; 93010; 96374; 96375; 99285; J1160; J1940; J3490